=== PATIENT | female | born 1995 | race Caucasian/White ===

== ENCOUNTER 2017-03-11 14:22 | Emergency (ER) | payer BC, OTHER ==
[~2017-03-11] VITALS: Ht 160 cm; Wt 80.2 kg
[~2017-03-11 14:22] MED LIST: FRRS300 PO; MTR600X PO; PRENTAB26 PO
[2017-03-11 14:25] VITALS: TEMP 36.5; Ht 160 cm; Wt 80.2 kg
[2017-03-11] MEDS ORDERED: ETONMIS VAGRING (14:44)
--- NOTE | 2017-03-11 14:47 | EMERGENCY ROOM VISIT NOTE ---
History Report prepared by Clarissa: Janae Vieira Under the Supervision of: Dr. Nimesh Mendes D.O. First contact with patient: 14:27 Chief Complaint: MENTAL HEALTH EVALUATION Stated Complaint: DEPRESSION,ANXIETY History of Present Illness The patient is a 21 year old female who presents to the Emergency Room for a mental health evaluation after feeling worsening depression for the last few weeks. The patient states that her boyfriend was in senior living and was released recently but overdosed on drugs 2 days after he got out. She reports that he is back in senior living but his family is living with her after being evicted. She notes that she recently started taking a weight loss pill that significantly worsened her depression and she stopped taking that pill shortly after starting it. The patient reports that she has a history of depression and was on Zoloft previously but stopped taking it after she was feeling better. She states that she has been having thoughts of envisioning herself drowning and also envisions herself drowning her 9 month old daughter and is scared of herself. She notes that she feels better when others are around her. Today the patient reports that she had a mental breakdown at work after having thoughts of hurting her daughter. She notes that she is not seeing a therapist. She denies any fever, nausea, vomiting, recent illness, alcohol use, and drug use. The patient states that she just stopped her menstrual period and it was normal timing. Source of History: patient Onset: a few weeks Position: other (mental health) Timing: constant, worsening Associated Symptoms: No fevers, No nausea, No vomiting Review of Systems See HPI for pertinent positives & negatives. A total of 10 systems reviewed and were otherwise negative. Past Medical & Surgical Medical Problems: (1) Episode of dizziness (2) membrane rupture (3) No pertinent past medical history (4) Post-dates (5) Family History Patient reports no known family medical history. Social History Smoking Status: Never Smoker Alcohol Use: none Drug Use: none Marital Status: in relationship Occupation Status: employed Current/Historical Medications Scheduled Etonogestrel/Ethinyl Estradiol (Nuvaring), 1 EA VAGRING MONTHLY Allergies Coded Allergies: Penicillins (Verified Adverse Reaction, Mild, VOMITING/NAUSEA, 03/11/17) Physical Exam Vital Signs Date Time Temp Pulse Resp B/P Pulse Ox O2 Delivery O2 Flow Rate FiO2 03/11/17 18:34 68 18 124/64 98 Room Air 03/11/17 14:25 36.5 82 18 119/80 99 Room Air Physical Exam GENERAL: Patient is awake, alert, and somewhat anxious appearing but comfortable. EYES: Bilateral conjunctival injection noted. The pupils are round and reactive. EARS, NOSE, MOUTH AND THROAT: The nose is without any evidence of any deformity. Mucous membranes are moist tongue is midline NECK: The neck is nontender and supple. RESPIRATORY: Normal respiratory effort is noted there is no evidence of wheezing rhonchi or rales CARDIOVASCULAR: Regular rate and rhythm noted there no murmurs rubs or gallops normal S1 normal S2 GASTROINTESTINAL: The abdomen is soft. Bowel sounds are present in all quadrants. Abdomen is nontender MUSCULOSKELETAL/EXTREMITIES: There is no evidence of gross deformity full range of motion is noted in the hips and shoulders SKIN: There is no obvious evidence of any rash. There are no petechiae, pallor or cyanosis noted. NEUROLOGIC: Patient is awake alert and oriented x3 strength is symmetric patellar reflexes are 2+ bilaterally PSYCH: Affect was flat, patient makes poor eye contact, currently admitting to vague suicidal ideation. Medical Decision & Procedures Laboratory Results 03/11/17 14:48 Red Blood Count 4.95, Mean Corpuscular Volume 89.3, Mean Corpuscular Hemoglobin 30.5, Mean Corpuscular Hemoglobin Concent 34.2, Mean Platelet Volume 12.1, Neutrophils (%) (Auto) 65.4, Lymphocytes (%) (Auto) 26.1, Monocytes (%) (Auto) 5.9, Eosinophils (%) (Auto) 2.2, Basophils (%) (Auto) 0.3, Neutrophils # (Auto) 6.08, Lymphocytes # (Auto) 2.43, Monocytes # (Auto) 0.55, Eosinophils # (Auto) 0.20, Basophils # (Auto) 0.03 03/11/17 14:48 Test 03/11/17 14:40 03/11/17 14:48 Urine Color YELLOW Urine Appearance CLEAR (CLEAR) Urine pH 6.5 (4.5-7.5) Urine Specific [place] 1.005 (1.000-1.030) Urine Protein NEG (NEG) Urine Glucose (UA) NEG (NEG) Urine Ketones NEG (NEG) Urine Occult Blood NEG (NEG) Urine Nitrite NEG (NEG) Urine Bilirubin NEG (NEG) Urine Urobilinogen NEG (NEG) Urine Leukocyte Esterase NEG (NEG) Urine Test NEG (NEG) Urine Opiates Screen NEG (NEG) Urine Methadone, Qualitative NEG (NEG) Urine Barbiturates NEG (NEG) Urine Phencyclidine (PCP) Level NEG (NEG) Ur Amphetamine/Methamphetamine NEG (NEG) MDMA (Ecstasy) Screen NEG (NEG) Urine Benzodiazepines Screen NEG (NEG) Urine Cocaine Metabolite NEG (NEG) Urine Marijuana (THC) NEG (NEG) White Blood Count 9.30 K/uL (4.8-10.8) Red Blood Count 4.95 M/uL (4.2-5.4) Hemoglobin 15.1 g/dL (12.0-16.0) Hematocrit 44.2 % (37-47) Mean Corpuscular Volume 89.3 fL (80-100) Mean Corpuscular Hemoglobin 30.5 pg (25-34) Mean Corpuscular Hemoglobin Concent 34.2 g/dl (32-36) Platelet Count 200 K/uL (130-400) Mean Platelet Volume 12.1 fL (7.4-10.4) Neutrophils (%) (Auto) 65.4 % Lymphocytes (%) (Auto) 26.1 % Monocytes (%) (Auto) 5.9 % Eosinophils (%) (Auto) 2.2 % Basophils (%) (Auto) 0.3 % Neutrophils # (Auto) 6.08 K/uL (1.4-6.5) Lymphocytes # (Auto) 2.43 K/uL (1.2-3.4) Monocytes # (Auto) 0.55 K/uL (0.11-0.59) Eosinophils # (Auto) 0.20 K/uL (0-0.5) Basophils # (Auto) 0.03 K/uL (0-0.2) RDW Standard Deviation 41.5 fL (36.4-46.3) RDW Coefficient of Variation 12.8 % (11.5-14.5) Immature Granulocyte % (Auto) 0.1 % Immature Granulocyte # (Auto) 0.01 K/uL (0.00-0.02) Anion Gap 4.0 mmol/L (3-11) Est Creatinine Clear Calc Drug Dose 127.1 ml/min Estimated GFR () 142.2 Estimated GFR (Non- 122.7 BUN/Creatinine Ratio 11.5 (10-20) Calcium Level 8.9 mg/dl (8.5-10.1) Total Bilirubin 0.7 mg/dl (0.2-1) Direct Bilirubin 0.1 mg/dl (0-0.2) Aspartate Amino Transf (AST/SGOT) 19 U/L (15-37) Alanine Aminotransferase (ALT/SGPT) 29 U/L (12-78) Alkaline Phosphatase 86 U/L (45-117) Total Protein 7.5 gm/dl (6.4-8.2) Albumin 4.0 gm/dl (3.4-5.0) Thyroid Stimulating Hormone (TSH) 1.710 uIu/ml (0.300-4.500) Ethyl Alcohol mg/dL < 3.0 mg/dl (0-3) Laboratory results per my review. ED Course 1427: The patient was evaluated in room A6. A complete history and physical examination were performed. 1543: I reevaluated the patient and updated her. 190: Upon reevaluation, the patient is doing well. I discussed the results and treatment plan with the patient. She verbalized agreement of the treatment plan. The patient was discharged home. Medical Decision Differential diagnosis: Etiologies such as mood disorder, infection, hypoglycemia, electrolyte abnormalities, cardiac sources, intracerebral event, toxicologic, neurologic, as well as others were entertained. Medication Reconciliation: I attest that I have personally reviewed the patient' s current medications list. Blood pressure screening: Patient was found to have normal blood pressure on screening and does not require follow-up. The patient is a 21-year-old female who presented to the emergency department for an evaluation of depression. The patient is had problems with depression ever since she gave . She has a healthy 9-month-old baby at home. The patient stopped taking her medications because she was feeling much better but her symptoms have started to recur. She has multiple stressors in her life right now. She has loose ideation related to her depression. She has no specific plan at this time. She was evaluated by the mental health case loader operator in the emergency department. At this time she does not meet specific criteria for inpatient admission at this time she does not feel that she is unsafe at home and does not feel that her child is unsafe at home either. She was advised to have family members around her all times and try to limit her alone time with the baby. She was also encouraged to follow-up as soon as possible with her primary care physician to restart her medications. She was also encouraged to return to the emergency department immediately or call crisis if symptoms change worsen or the need arises. Impression Primary Impression: Depression Additional Impression: Acute anxiety Scribe Attestation The scribe's documentation has been prepared under my direction and personally reviewed by me in its entirety. I confirm that the note above accurately reflects all work, treatment, procedures, and medical decision making performed by me. Departure Information Dispostion Home / Self-Care Referrals Krzysztof Stokes M.D. (PCP) Forms HOME CARE DOCUMENTATION FORM, IMPORTANT VISIT INFORMATION Patient Instructions Depression Help Tips, Depression Know Signs Sx, [facility] Additional Instructions Continue all medications as prescribed. Rest and avoid any strenuous activity. Call crisis or return to the emergency department immediately if symptoms change worsen or the need arises. Problem Qualifiers Primary Impression: Depression Depression Type: unspecified Qualified Codes: F32.9 - Major depressive disorder, single episode, unspecified
[2017-03-11 15:02] LABS: BASO % 0.3 %; BASO ABS # 0.03 K/uL (0-0.2); COMPLETE YES; EOS % 2.2 %; HEMATOCRIT 44.2 % (37-47); IG% 0.1 %; LYMPH % 26.1 %; LYMPH ABS # 2.43 K/uL (1.2-3.4); MEAN CELL VOLUME 89.3 fL (80-100); MEAN CORPUSCULAR HEMOGLOBIN 30.5 pg (25-34); MEAN CORPUSCULAR HGB CONC 34.2 g/dl (32-36); MEAN PLATELET VOLUME 12.1 fL (7.4-10.4); MONO % 5.9 %; NEUT % 65.4 %; PLATELET COUNT 200 K/uL (130-400); RED BLOOD COUNT 4.95 M/uL (4.2-5.4)
[2017-03-11 15:14] LABS: URINE APPEARANCE CLEAR (CLEAR); URINE BILIRUBIN NEG (NEG); URINE COLOR YELLOW; URINE NITRITE NEG (NEG); URINE PH 6.5 (4.5-7.5); URINE SPECIFIC GRAVITY 1.005 (1.000-1.030); UROBILINOGEN NEG (NEG)
[2017-03-11 15:20] LABS: MANUAL MICROSCOPIC REQUIRED? NO; REVIEW REQ? NO
[2017-03-11 15:23] LABS: BUN/CREATININE RATIO 11.5 (10-20); CALCIUM 8.9 mg/dl (8.5-10.1); CREATININE 0.69 mg/dl (0.60-1.20); POTASSIUM 3.5 mmol/L (3.5-5.1)
[2017-03-11 15:33] LABS: THYROID STIMULATING HORMONE 1.71 uIu/ml (0.300-4.500)
[2017-03-11 15:38] LABS: BENZODIAZEPINE, URINE NEG (NEG); COCAINE,URINE NEG (NEG); PHENCYCLIDINE, URINE NEG (NEG)
[2017-03-11 18:34] VITALS: BP 124/64; PULSE 68; O2SAT 98
== END 2017-03-11 19:01 | disposition home or self-care (01) ==
LOC: C.EDB 14:24 → C.EDA 19:01
DX: F32.9 Major depressive disorder, single episode, unspecified (principal); F41.9 Anxiety disorder, unspecified

== ENCOUNTER → 2018-01-06 | Day surgery (SDC) | payer BC ==
[~2018-01-06] VITALS: Ht 160 cm; Wt 84.0 kg
[~2018-01-06] MED LIST changes: +ATROPINE SULFATE 0.1 MG/ML 5ML SYR IV PRN; +ETONMIS VAGRING; +EpHEDrine SULFATE INJ 50 MG/ML AMP IV PRN; +FENTANYL CITRATE INJ 50 MCG/1 ML 2 ML VIAL IV PRN; -FRRS300 PO; +LACTATED RINGER'S 1000ML 1,000 ML IV SCH; -MTR600X PO; -PRENTAB26 PO; +SERT25TA PO
[2018-01-06 08:21] VITALS: BP 129/56; PULSE 92; TEMP 37; O2SAT 100; Ht 160 cm; Wt 84.0 kg
--- NOTE | 2018-01-08 10:35 | EDITING REQUIRED CODING QUERY ---
REASON FOR CANCELLATION Please provide a diagnosis below for the reason of cancellation: Complete spontaneous miscarriage prior to her surgery REASON PROCEDURE CANCELLED: Thank you for your assistance, Carly Last - Licensed Embalmer
== END | disposition home or self-care (01) ==
LOC: C.ACU 07:54
PROVIDERS: ATTEND Obstetrics & Gynecology
DX: O02.1 Missed abortion (principal); Z53.8 Procedure and treatment not carried out for other reasons; Z88.0 Allergy status to penicillin; Z83.3 Family history of diabetes mellitus; Z82.49 Family history of ischemic heart disease and other diseases of the circulatory system

== ENCOUNTER → 2018-01-29 | Outpatient (CLI) | payer BC ==
[~2018-01-29] MED LIST changes: -ATROPINE SULFATE 0.1 MG/ML 5ML SYR IV PRN; -ETONMIS VAGRING; -EpHEDrine SULFATE INJ 50 MG/ML AMP IV PRN; -FENTANYL CITRATE INJ 50 MCG/1 ML 2 ML VIAL IV PRN; -LACTATED RINGER'S 1000ML 1,000 ML IV SCH; +MTR600X PO
[2018-01-29 12:11] LABS: BASO % 0.3 %; BASO ABS # 0.03 K/uL (0-0.2); EOS % 2.5 %; EOS ABS # 0.25 K/uL (0-0.5); HEMATOCRIT 44.3 % (37-47); HEMOGLOBIN 15.1 g/dL (12.0-16.0); IG# 0.01 K/uL (0.00-0.02); LYMPH % 30.2 %; LYMPH ABS # 3.02 K/uL (1.2-3.4); MEAN CELL VOLUME 89.3 fL (80-100); MEAN CORPUSCULAR HEMOGLOBIN 30.4 pg (25-34); MEAN CORPUSCULAR HGB CONC 34.1 g/dl (32-36); MEAN PLATELET VOLUME 12.5 fL (7.4-10.4); MONO % 6.1 %; MONO ABS # 0.61 K/uL (0.11-0.59); NEUT % 60.8 %; NEUT ABS # 6.09 K/uL (1.4-6.5); PLATELET COUNT 218 K/uL (130-400); RED CELL DISTRIBUTION WIDTH CV 12.7 % (11.5-14.5); RED CELL DISTRIBUTION WIDTH SD 40.8 fL (36.4-46.3); WHITE BLOOD COUNT 10.01 K/uL (4.8-10.8)
== END | disposition home or self-care (01) ==
LOC: C.LAB 11:07
PROVIDERS: ATTEND Obstetrics & Gynecology
DX: Z01.812 Encounter for preprocedural laboratory examination (principal)

== ENCOUNTER → 2018-01-31 | Day surgery (SDC) | payer BC ==
--- NOTE | 2018-01-28 13:07 | HISTORY & PHYSICAL EXAMINATION ---
DATE OF ADMISSION: 01/31/2018 REASON FOR ADMISSION: Retained products of conception. HISTORY OF PRESENT ILLNESS: The patient is a 22-year-old female para 1-0-0-1 who presents today for followup ultrasound. Two weeks ago, she had a spontaneous miscarriage approximately 10 weeks' gestation and has retained products. She was originally scheduled 2 weeks ago in the OR and decided to wait because she thought she passed everything. She is not currently bleeding or having any pain. The patient is O positive. PAST MEDICAL HISTORY: Positive for depression. PAST SURGICAL HISTORY: None. SOCIAL HISTORY: Denies smoking, alcohol or drug use. FAMILY HISTORY: Noncontributory. PAST OBSTETRICAL HISTORY: x1 in 2016. ALLERGIES: PENICILLIN. MEDICATIONS: vitamins. PHYSICAL EXAMINATION: HEENT: Within normal limits. LUNGS: Clear to auscultation. COR: Regular rate and rhythm. ABDOMEN: Soft. EXTREMITIES: Within normal limits. NEUROLOGICAL: Intact. ASSESSMENT: Post-, retained products of conception. PLAN: D&E in the OR.
[2018-01-29 13:59] VITALS: Ht 160 cm; Wt 84.1 kg
[~2018-01-31] VITALS: Ht 160 cm; Wt 84.1 kg
[~2018-01-31] MED LIST changes: +ATROPINE SULFATE 0.1 MG/ML 5ML SYR IV PRN; +DEXAMETHASONE SOD INJ 4 MG/ML VIAL ONE; +EpHEDrine SULFATE INJ 50 MG/ML AMP IV PRN; +FENTANYL CITRATE INJ 50 MCG/1 ML 2 ML VIAL IV PRN; +FENTANYL CITRATE INJ 50 MCG/1 ML 2 ML VIAL ONE; +IBUPROFEN 600 MG TAB PO PRN; +KETOROLAC TROMETHAMINE 30 MG/ML VIAL IV. PRN; +KETOROLAC TROMETHAMINE 30 MG/ML VIAL ONE; +LACTATED RINGER'S 1000ML 1,000 ML IV SCH; +LIDOCAINE HCL 2% 2 ML VIAL (20MG/ML) ONE; +MIDAZOLAM HCL 1 MG/ML 2ML VIAL ONE; +MoRPHine SULFATE 2 MG/ML CARP IV PRN; +ONDANSETRON INJ 2 MG/ML 2 ML VIAL IV PRN; +ONDANSETRON INJ 2 MG/ML 2 ML VIAL ONE; +OXYCODONE/ACETAMINOPHEN 5-325 TAB PO PRN; +OXYTOCIN INJ 10 UNITS/ML VIAL ONE; +PROPOFOL IV EMULSION 10 MG/ML 20 ML VIAL IV ONE; +SILVER NITR/POTASSIUM NITRATE APPLICATOR ONE; +SODIUM CHLORIDE 0.9% 1000ML 1,000 ML IV SCH
--- NOTE | 2018-01-31 08:42 | History & Physical Bridge Note ---
H&P Re-Evaluation Bridge Note: I have examined the patient, reviewed the History & Physical and in the interval since the performance of the History & Physical I have noted the following changes of clinical significance: No changes noted
--- NOTE | 2018-01-31 11:26 | [facility] Post Operative Brief Note ---
Immediate Operative Summary Operative Date Jan 31, 2018. Pre-Operative Diagnosis Missed Post-Operative Diagnosis Same Procedure(s) Performed Dilation and evacuation Surgeon Dr Martinez Substation Operator Helper Surgeon(s) none Estimated Blood Loss 25ml Findings Consistent with Post-Op Diagnosis Fluids (cc crystalloids) 1100 ml. Specimens A. Products of conception Drains None Anesthesia Type General Complication(s) none Disposition Accompanied Pt To Recover: no
--- NOTE | 2018-01-31 11:29 | Discharge Instructions ---
Discharge Instructions Date of Service Jan 31, 2018. Admission Reason for Admission: Retained Products Of Conception Discharge Discharge Diagnosis / Problem: missed Discharge Goals Goal(s): Routine recovery after surgery Activity Recommendations Activity Limitations: as noted below Lifting Limitations: no more than 10 pounds, gradually increase as tolerated Exercise/Sports Limitations: gradually increase as tolerated May Resume Sexual Activity: after follow-up appointment Shower/Bathe: no limitations Driving or Machine Use: resume 1 day after discharge . Instructions / Follow-Up Instructions / Follow-Up ACTIVITY RECOMMENDATIONS: * Avoid tampons, douching, hot tubs, pools, and intercourse until bleeding has stopped. * May shower as usual. * No strenuous activity for 24-48 hours. After 24-48 hours, you may do anything you feel like doing (driving and sports are okay). SPECIAL CARE INSTRUCTIONS: Special Diet: * Mild nausea may occur in the immediate post-operative period. * Take clear liquids such as tea, cola or bouillon until all nausea has subsided; you may then resume your normal diet. Special Care: * Light bleeding and vaginal spotting can last from a few days to 3-4 weeks. Call your doctor if bleeding becomes heavier than the heaviest part of your period. * Check your temperature twice a day for one week. If it goes above 100.4 degrees Fahrenheit (38.0 Celsius), notify your doctor. * Call your doctor's office for an appointment for 6 weeks after your surgery. FOLLOW-UP VISIT: Call your doctor's office for an appointment for 6 weeks after your surgery. Current Hospital Diet Patient's current hospital diet: Discharge Diet Recommended Diet: Regular Diet Fluid Restriction: None Procedures Procedures Performed: Dilation and evacuation Pending Studies Studies pending at discharge: no Medical Emergencies . Who to Call and When: Medical Emergencies: If at any time you feel your situation is an emergency, please call 911 immediately. . Non-Emergent Contact Non-Emergency issues call your: Primary Care Provider . . "Provider Documentation" section prepared by Jay Martinez. .
[2018-01-31 12:20] VITALS: BP 116/58; PULSE 88; TEMP 36.5; O2SAT 97
[2018-01-31 12:50] VITALS: BP 133/83; PULSE 96; TEMP 36.6; O2SAT 96
--- NOTE | 2018-01-31 13:28 | OPERATIVE REPORT ---
DATE OF OPERATION: 01/31/2018 PREOPERATIVE DIAGNOSIS: Missed . POSTOPERATIVE DIAGNOSIS: Same. PROCEDURE: D and E. SURGEON: Jay Martinez MD HIGH SCHOOL LEARNING SUPPORT TEACHER: None. COMPLICATIONS: None. FINDINGS: Products of conception. SPECIMEN: Products of conception. TOTAL FLUIDS: 1100 mL. TOTAL URINE OUTPUT: 100 mL. BLOOD LOSS: 25 mL. CLINICAL HISTORY: The patient is a 22-year-old female, para 1-0-0-1, admitted for a missed . The patient is O positive, approximately 10 weeks' gestation. She had a timeout before the procedure was started. No antibiotics were given. DESCRIPTION OF PROCEDURE: After satisfactory general anesthesia, the patient was prepped and draped in usual sterile fashion. Catheter used to enter into the bladder of 100 mL of clear urine. Exam under anesthesia revealed the uterus to be approximately 10 week size. No adnexal mass. A weighted speculum was placed in the posterior vault of the vagina. Single tooth tenaculum was placed on the anterior lip of the cervix. Cervix was sounded to 10 cm. Uterus was then progressively dilated. A #10 curved curet was then introduced suctioning out products of conception. Sharp endometrial curet was then used curetting out minimal amounts of tissue. Pitocin was started in the IV. No active bleeding was noted. EBL 25 mL. Final sponge and instrument count were found to be correct. All remaining instruments were removed. Patient was then placed supine on a stretcher and taken to recovery room in stable condition. I attest to the content of the Intraoperative Record and any orders documented therein. Any exception s are noted below.
--- NOTE | 2018-01-31 14:55 | Anesthesiology Progress Note ---
Anesthesia Post Op Note Date & Time Jan 31, 2018 at 14:55 Vital Signs Pain Intensity: 2 Vital Signs Past 12 Hours Date Time Temp Pulse Resp B/P (MAP) Pulse Ox O2 Delivery O2 Flow Rate FiO2 01/31/18 12:50 36.6 96 16 133/83 96 Room Air 01/31/18 12:20 36.5 88 16 116/58 97 Room Air 01/31/18 12:15 36.6 91 21 122/76 95 Room Air 01/31/18 12:05 87 17 129/76 96 Room Air 01/31/18 11:55 90 29 132/72 99 Oxymask 10 01/31/18 11:45 102 24 131/69 98 Oxymask 10 01/31/18 11:37 36.5 99 16 130/73 99 Oxymask 10 Notes Mental Status: alert / awake / arousable, participated in evaluation Pt Amnestic to Procedure: Yes Nausea / Vomiting: adequately controlled Pain: adequately controlled Airway Patency, RR, SpO2: stable & adequate BP & HR: stable & adequate Hydration State: stable & adequate Anesthetic Complications: no major complications apparent
== END | disposition home or self-care (01) ==
LOC: C.ACU 08:01
PROVIDERS: ATTEND Obstetrics & Gynecology
DX: O02.1 Missed abortion (principal); Z88.0 Allergy status to penicillin; Z83.3 Family history of diabetes mellitus; Z82.49 Family history of ischemic heart disease and other diseases of the circulatory system

== ENCOUNTER 2019-12-11 09:05 | Inpatient (IN) ==
--- NOTE | 2019-12-11 09:37 | Obstetrical Progress Note ---
Date of Service December 11, 2019 Physical Exam Physical Exam: Admit Note 24 F P1001 at 40 weeks with onset of labor this AM. Had some leakage of fluid this AM. Amnisure was negative. GBS is negative. FHT Cat 1. Cervix 4/80/- 1/vertex/anterior. EFW 7.5 lbs. Patient in early labor and will ambulate. Plans for epidural. Results & Data ([facility]) Vital Signs (Past 12 Hours) Vital Signs Temp Pulse Resp BP 12/11/19 09:15 36.9 C 82 22 138/84
[2019-12-11] MEDS: LACTATED RINGER'S 1,000 ML IV PRN ×2 (09:58→14:07)
[2019-12-11 10:00] LABS: Hematocrit (blood only) 39.6 % (37-47); Hemoglobin 12.9 g/dL (12.0-16.0); Mean Corpuscular Hemoglobin 27.9 pg (25-34); Mean Corpuscular Volume 85.5 fL (80-100); Platelet Count 176 K/uL (130-400); RDW Standard Deviation 42.5 fL (36.4-46.3); Red Blood Count 4.63 M/uL (4.2-5.4); White Blood Count 15.75 K/uL (4.8-10.8)
[2019-12-11 10:02] LABS: Mean Corpuscular Hgb Conc 32.6 g/dL (32-36)
[2019-12-11] MEDS ORDERED: BUPIVACAINE 0.25% 30 ML VIAL ONE (10:06)
[2019-12-11] MEDS ORDERED: ePHEDrine sulfate 50 MG/ML AMP ONE (10:06)
[2019-12-11] MEDS ORDERED: fentaNYL citrate 100 MCG/2 ML VIAL ONE (10:06)
[2019-12-11] MEDS ORDERED: fentaNYL 2MCG/ML ROPIV 1.25MG/ML 100 ML BAG EPI ONE (10:07)
[2019-12-11] MEDS ORDERED: NALOXONE HCL 0.4 MG/1 ML VIAL/CARP IV PRN (10:47)
[2019-12-11] MEDS ORDERED: ePHEDrine sulfate 50 MG/ML AMP IV PRN (10:47)
[2019-12-11] MEDS ORDERED: DiphenhydrAMINE HCL 50 MG/ML VIAL IV PRN (10:47)
[2019-12-11] MEDS ORDERED: ONDANSETRON INJ 2 MG/ML 2 ML VIAL IV PRN (10:47)
[2019-12-11] MEDS ORDERED: fentaNYL 2MCG/ML ROPIV 1.25MG/ML 100 ML BAG EPI PRN (10:47)
[2019-12-11] MEDS ORDERED: NALOXONE HCL 1 MG in SODIUM CHLORIDE 0.9% 1000ML 1,000 ML IV PRN (10:47)
[2019-12-11] MEDS ORDERED: PROMETHAZINE HCL 6.25 MG in SODIUM CHLORIDE 0.9% 50 ML IV PRN (10:47)
[2019-12-11] MEDS ORDERED: NALBUPHINE HCL INJ 10 MG/ML AMP IV PRN (10:47)
--- NOTE | 2019-12-11 10:47 | Anesthesiology Consultation ---
Date of Service December 11, 2019 Assessment & Plan (1) Encounter for pre-operative examination: Chart Review Chart Review: Patient NOT seen in Pre Admission Testing and Acceptable Risk for Labor Epidural Consults Requested none ASA ASA2 Proposed Anesthesia Anesthesia Type: Labor Epidural Risk / Benefits Reviewed With: PT / POA / Parent / Guardian, Accepts Plan and Informed Consent Obtained History Allergies Allergy/AdvReac Type Severity Reaction Status Date / Time Penicillins AdvReac Mild VOMITING/NA Verified 11/22/19 11:55 USEA Medications Home Medications Medication Instructions Recorded Confirmed Last Taken vit no.[id number] 1 tab PO DAILY 07/01/19 11/22/19 10/19/19 [ Vitamin] Active Medications Generic Name Dose Route Start Last Admin Trade Name Freq PRN Reason Stop Dose Admin Lactated Ringer's 1,000 mls @ 125 mls/hr 12/11/19 09:34 12/11/19 10:45 Lr IV 12/13/19 09:33 999 mls/hr .Q8H PRN Infusion L&D Protocol Protocol Past Medical History Medical History Depression (Chronic) Obesity Exercise / Class Metabolic Activity II 4-5 Yardwork/Stairs/Walk up hill Past Family History Family History Other No pertinent family history in first degree relatives Past Surgical History Surgical History Hx of dilation and curettage Status post dilatation and curettage (Resolved) Past Anesthesia History No Hx of Anesthesia Complications and No Family Hx of Anesthesia Complications History of PONV No Hx of PONV and No Hx of Motion Sickness Social History Smoking Status: Never smoker Hx Alcohol Use: No Hx Substance Use: No substance use type: does not use Physical Exam Vital Signs Last Vital Signs Temp 36.9 C 12/11/19 09:15 Pulse 141 H 12/11/19 10:45 Resp 22 12/11/19 09:15 BP 150/81 H 12/11/19 10:45 Pulse Ox 100 12/11/19 10:44 ENMT Mouth: no dentition abnormality Thyromental Distance: > or= 3.5 Finger Breadths Mallampati Class: II Neck normal visual inspection Respiratory normal respiratory effort Auscultation: lungs clear to auscultation bilaterally Cardiovascular Rate/Rhythm: regular rate and regular rhythm Psychiatric Orientation: alert Testing Laboratory Results 12/11/19 09:48
--- NOTE | 2019-12-11 12:59 | Obstetrical Progress Note ---
Date of Service December 11, 2019 Physical Exam Genitourinary: Manual OB Exam: + cervical dilation 7 cm, + cervical effacement 100%, + station -2 and + amniotic fluid clear OB Exam Monitor Tracing: + external FHT monitor used, + external uterine monitor used, + category I and + normal FHT variability AROM with amni-hook clear fluid Results & Data ([facility]) Vital Signs (Past 12 Hours) Vital Signs Temp Pulse Resp BP Pulse Ox 12/11/19 12:57 131 H 115/70 12/11/19 12:54 157 H 98 12/11/19 12:49 101 H 97 12/11/19 12:45 110 H 125/82 12/11/19 12:44 105 H 99 12/11/19 12:39 104 H 100 12/11/19 12:35 108 H 116/83 12/11/19 12:34 102 H 100 12/11/19 12:29 125 H 100 12/11/19 12:25 116 H 142/75 H 12/11/19 12:24 108 H 99 12/11/19 12:19 97 H 100 12/11/19 12:16 113 H 133/76 12/11/19 12:14 116 H 100 12/11/19 12:09 116 H 99 12/11/19 12:05 146 H 141/72 H 12/11/19 12:04 140 H 100 12/11/19 11:59 99 H 95 12/11/19 11:58 117 H 79 L 12/11/19 11:55 100 H 91/55 L 12/11/19 11:54 101 H 100 12/11/19 11:49 100 H 100 12/11/19 11:47 109 H 104/61 12/11/19 11:44 107 H 100 12/11/19 11:39 133 H 95 12/11/19 11:38 111 H 88 L 12/11/19 11:34 115 H 100 12/11/19 11:29 99 H 100 12/11/19 11:25 136 H 121/56 L 12/11/19 11:24 117 H 100 12/11/19 11:19 107 H 94 12/11/19 11:14 81 100 12/11/19 11:10 36.9 C 12/11/19 11:09 116 H 100 12/11/19 11:07 124 H 87 L 02/28/20 11:04 109 H 100 12/11/19 10:59 117 H 100 12/11/19 10:56 122 H 87 L 12/11/19 10:55 123 H 122/63 12/11/19 10:54 132 H 100 12/11/19 10:49 132 H 100 12/11/19 10:45 141 H 150/81 H 12/11/19 10:44 143 H 100 12/11/19 10:42 116 H 120/62 12/11/19 10:40 126 H 122/63 12/11/19 10:39 109 H 99 12/11/19 10:38 122/74 12/11/19 10:37 114 H 127/85 12/11/19 10:34 117 H 121/70 99 12/11/19 10:32 97 H 133/81 12/11/19 10:31 93 H 132/70 12/11/19 10:29 87 99 12/11/19 10:28 101 H 119/82 12/11/19 10:24 96 H 100 12/11/19 10:21 103 H 89 L 12/11/19 10:19 100 H 97 12/11/19 09:15 36.9 C 82 22 138/84
[2019-12-11] MEDS: OXYTOCIN 30 UNITS/500 ML BAG IV PRN ×2 (15:00→16:39)
[2019-12-11] MEDS ORDERED: bisacodyL 10 MG SUPP PR PRN (15:05)
[2019-12-11] MEDS ORDERED: ACETAMINOPHEN 325 MG TAB PO PRN (15:05)
[2019-12-11] MEDS ORDERED: DIPHTHERIA/TETANUS/PERTUSSIS 0.5 ML SYR/VIAL IM ONE (15:05)
[2019-12-11] MEDS ORDERED: HYDROCORTISONE ACETATE 25 MG SUPP PR PRN (15:05)
[2019-12-11] MEDS ORDERED: OXYTOCIN 30 UNITS/500 ML BAG IV PRN (15:05)
[2019-12-11] MEDS ORDERED: BENZOCAINE 20% AER SPR 82.5 GM CAN EXT PRN (15:05)
[2019-12-11] MEDS ORDERED: SUPERCREAM 0.870% 15 GM JAR EXT PRN (15:05)
--- NOTE | 2019-12-11 17:16 | Anesthesia Procedure Note ---
Date of Service December 11, 2019 Anesthesia Post Epidural Note Vital Signs Vital Signs: Temp Pulse Resp BP Pulse Ox 36.7 C 87 20 114/72 97 12/11/19 12:59 12/11/19 17:10 12/11/19 12:59 12/11/19 17:10 12/11/19 14:54 Notes Mental Status: alert / awake / arousable Nausea / Vomiting: adequately controlled Pain: adequately controlled Airway Patency, RR, SpO2: stable & adequate BP & HR: stable & adequate Hydration State: stable & adequate Neuraxial Anesthesia: was administered and sensory block is resolving Anesthetic Complications: no major complications apparent and Pt Satisfied with anesthetic care Epidural: Removed without complications and With tip intact
[2019-12-11] MEDS: DOCUSATE SODIUM 100 MG CAP PO SCH (20:34)
[2019-12-11] MEDS: IBUPROFEN 600 MG TAB PO PRN (22:25)
[2019-12-12] MEDS: IBUPROFEN 600 MG TAB PO PRN ×3 (03:46→20:08)
[2019-12-12 06:26] LABS: Hematocrit (blood only) 34.3 % (37-47); Hemoglobin 11.1 g/dL (12.0-16.0); Mean Corpuscular Hemoglobin 27.7 pg (25-34); Mean Corpuscular Hgb Conc 32.4 g/dL (32-36); Mean Corpuscular Volume 85.5 fL (80-100); Mean Platelet Volume 12.1 fL (7.4-10.4); Platelet Count 161 K/uL (130-400); Red Blood Count 4.01 M/uL (4.2-5.4); White Blood Count 14.76 K/uL (4.8-10.8)
[2019-12-12] MEDS: DOCUSATE SODIUM 100 MG CAP PO SCH ×2 (08:14→20:08)
[2019-12-12] MEDS: PRENATAL VITAMIN 1 TAB PO SCH (08:14)
[2019-12-12] MEDS ORDERED: PRENATAL VITAMIN 1 TAB PO SCH (09:00)
--- NOTE | 2019-12-12 09:19 | Delivery Summary ---
Vaginal Delivery Summary Date of Service December 11, 2019 Vaginal Delivery Summary Delivery note live male CHARLIE over intact perineum with mild shoulder dystocia noted. Netta maneuver and posterior arm reduced before delivery of shoulder. Apgars 7/9 weight 10 lb. 8.5 oz. Cord blood obtained and placenta delivered spontaneously and intact. No tears. EBL 200 ml. Final sponge and instrument count are correct. Mom and baby stable.
--- NOTE | 2019-12-12 09:21 | Obstetrical Progress Note ---
Date of Service December 12, 2019 Assessment & Plan Admission and Anticipated Discharge Date Admission Date: December 11, 2019 Subjective PPD#1 doing well passing gas tolerating diet ambulating well Physical Exam Constitutional: WD/WN, vitals as above comfortable abdomen soft and non- tender fundus firm no edema neg Santosh's tent d/c in AM Results & Data ([facility]) Vital Signs (Past 12 Hours) Vital Signs Temp Pulse Resp BP Pulse Ox 12/12/19 07:50 36.7 C 76 16 101/65 98 12/12/19 00:20 36.9 C 86 18 108/69 Laboratory Results Laboratory Results - last 48 hr 12/11/19 12/12/19 09:48 06:13 WBC 15.75 H 14.76 H RBC 4.63 4.01 L Hgb 12.9 11.1 L Hct 39.6 34.3 L MCV 85.5 85.5 MCH 27.9 27.7 MCHC 32.6 32.4 RDW Std Deviation 42.5 43.0 RDW Coeff of Sofia 14.0 14.0 Plt Count 176 161 MPV 12.0 H 12.1 H
[2019-12-12] MEDS ORDERED: bisacodyL 5 MG TABEC PO SCH (20:00)
[2019-12-13 06:31] LABS: Hematocrit (blood only) 36.2 % (37-47); Hemoglobin 11.8 g/dL (12.0-16.0)
[2019-12-13] MEDS ORDERED: MEASLES, MUMPS & RUBELLA VIRUS VIAL SQ ONE (07:37)
[2019-12-13] MEDS: PRENATAL VITAMIN 1 TAB PO SCH (07:47)
[2019-12-13] MEDS: IBUPROFEN 600 MG TAB PO PRN (07:47)
--- NOTE | 2019-12-13 08:36 | Obstetrical Progress Note ---
Date of Service December 13, 2019 Assessment & Plan Admission and Anticipated Discharge Date Admission Date: December 11, 2019 Subjective doing well passing gas tolerating diet ambulating well Physical Exam Constitutional: WD/WN, vitals as above comfortable Results & Data ([facility]) Vital Signs (Past 12 Hours) Vital Signs Temp Pulse Resp BP 12/13/19 00:15 36.6 C 63 18 126/83 Laboratory Results Laboratory Results - last 48 hr 12/11/19 12/12/19 12/13/19 09:48 06:13 06:19 WBC 15.75 H 14.76 H RBC 4.63 4.01 L Hgb 12.9 11.1 L 11.8 L Hct 39.6 34.3 L 36.2 L MCV 85.5 85.5 MCH 27.9 27.7 MCHC 32.6 32.4 RDW Std Deviation 42.5 43.0 RDW Coeff of Sofia 14.0 14.0 Plt Count 176 161 MPV 12.0 H 12.1 H
[2019-12-13] MEDS: DOCUSATE SODIUM 100 MG CAP PO SCH (09:18)
== END 2019-12-13 11:00 | disposition home or self-care (01) | DRG 807 ==
LOC: 4S1 09:05 → OPB 09:05 → 4S1 09:34 → 4S2 18:15

== ENCOUNTER 2024-07-25 08:48 | Inpatient (IN) ==
--- NOTE | 2024-07-25 08:57 | Emergency Department Note ---
History of Present Illness General Chief complaint: Infection Stated complaint: ABCESS UNDER ARM Time Seen by Provider: 07/25/24 08:56 History of Present Illness Maximum Pain Intensity: 10 This is a 28-year-old female who presents to the emergency department via private vehicle with complaints of "left armpit swelling, pain". The patient notes that there is an abscess under the left arm area. No history of similar. This began 3 days ago. Patient denies any trauma, injury, fevers, chills, nausea or vomiting. She notes penicillin allergy causing nausea when she was younger but notes she has had penicillin since then without issue. Patient otherwise denies any pertinent past medical history or surgeries. Home Medications Medication Instructions Recorded Confirmed Type buprenorphine 8 mg-naloxone 2 mg 2.5 film sublingual DAILY 07/25/24 07/25/24 History sublingual film Allergies Allergy/AdvReac Type Severity Reaction Status Date / Time Penicillins AdvReac Intermediate NAUSEA/VOMI Verified 11/07/22 15:40 TIN Past Med/Surg History Problem List (Updated 07/25/24 @ 16:54 by Erlin Brown PA-C) Abscess of left axilla (Acute) Cellulitis of left axilla (Acute) Depression (Chronic) Medical History Obesity Surgical History Hx of dilation and curettage Family History Other Deep vein thrombosis Social History Smoking Status: Never smoker Second Hand Exposure: No; Do You Dip or Chew Tobacco: No; Hx Alcohol Use: Yes Alcohol type: hard liquor Hx Substance Use: No Preferred Language: Niuean Communication Ability: Effective Visual Impairment: No Limitations Superior Court Clerk Required: No Beliefs That Will Affect Care: None marital status: Single Current Living Situation: Alone Current Living Situation Comment: Pt lives with and is caregiver of her two young children. current occupational status: employed Other Information That Helps Us Care for You: No Feels Safe at Home: Yes Safety Concerns: Feels Safe At This Time Assistive Devices: None Review of Systems A total of 10 systems reviewed and were otherwise negative Physical Exam Vital Signs Vital Signs - 24 hr 07/25/24 08:53 07/25/24 11:16 07/25/24 13:23 Temperature 36.8 C Temperature Source Temporal Artery Scan Pulse Rate 122 H Pulse Rate [Finger] 88 90 Respiratory Rate 19 16 18 Respiratory Effort / Characteristics Non-Labored Spontaneous Respiratory Depth Normal Normal Blood Pressure 116/78 Blood Pressure [Right Arm] 129/97 125/79 Blood Pressure Mean 90 Blood Pressure Mean [Right Arm] 107 94 Blood Pressure Position Sitting Blood Pressure Position [Right Arm] Semi-fowlers Semi-fowlers Pulse Oximetry 100 100 99 Oxygen Delivery Method Room Air Room Air Room Air Sepsis Recent Fever Within 48 Hours No Sepsis New/Unexplained Change in Mental Status No Sepsis Action Taken by Nursing No Action Required VITAL SIGNS - Vital signs and nursing notes were reviewed. Stable and afebrile. Tachycardic. GENERAL - 28-year-old female appearing her stated age who is in no acute distress. Communicates well with provider and answers questions appropriately. SKIN -left axillary area with an approximately 3 x 2 raised erythematous region with fluctuance. Surrounding erythema noted. There is some yellowish ecchymosis present across the chest which the patient notes was from "horsing around" and is unrelated. HEAD - NC/AT. EYES - PERRL with EOMI bilaterally. Sclera anicteric. EARS - No deformities of external structures noted on gross examination bilaterally. Tympanic membranes pearly villa without retraction or bulging. No fluid or purulent material visualized behind the TM. Handle of malleus, umbo, cone of light, pars tensa/flaccid all easily visualized. NOSE - Midline and without cyanosis. Septum midline without deviation or septal hematoma noted. MOUTH/OROPHARYNX - Without perioral cyanosis. Buccal mucosa pink and moist and without leukoplakia. Tongue midline with equal elevation of palate bilaterally. No tonsillar hypertrophy, erythema, or exudates noted. Good dentition noted. NECK - Neck with FROM. No nuchal rigidity. LUNGS - CTA CARDIAC - RRR EXTREMITIES - No clubbing or peripheral cyanosis. Skin as above. Left axillary region exquisitely tender with induration tracking towards the left anterior lateral chest wall. +5/5 strength noted in UE/LE bilaterally. Left upper extremity appropriately warm and well-perfused. NEUROLOGIC - Cranial nerves grossly intact. Sensory intact to light touch throughout. PSYCH -alert, oriented and pleasant on exam. pt is very pleasant and interacts well with examiner. Course Administered Medications Lactobacillus Acidophilus (Advanced Probiotic 625 Mg Capsule) 1,250 mg PO DAILY RUT Stop: 08/24/24 15:59 Last Admin: 07/25/24 16:38 Dose: 1,250 mg Documented By: ED Discontinued Medications Ampicillin Sodium/Sulbactam Sodium (Unasyn) 3,000 mg in 100 mls @ 200 mls/hr IV NOW STA Stop: 07/25/24 12:52 Last Infusion: 07/25/24 15:18 Dose: Infused Documented By: Admin: 07/25/24 12:56 Dose: 200 mls/hr Documented By: [facility] Vancomycin HCl 1,250 mg/ (Sodium Chloride) 525 mls @ 200 mls/hr IV NOW ONE Stop: 07/25/24 15:00 Last Infusion: 07/25/24 16:33 Dose: Infused Documented By: Admin: 07/25/24 13:25 Dose: 200 mls/hr Documented By: MMF Ketorolac Tromethamine (Ketorolac Tromethamine 15 Mg/Ml Vial) 10 mg IV NOW ONE Stop: 07/25/24 12:18 Last Admin: 07/25/24 12:27 Dose: 10 mg Documented By: MMF Lidocaine (Lidocaine/Epineph/Tetracaine 1 Ea Syr) 1 each EXT NOW STA Stop: 07/25/24 10:34 Last Admin: 07/25/24 11:18 Dose: 1 each Documented By: MMF Potassium Chloride (Potassium Chloride Crtab 20 Meq Tabcr) 40 meq PO NOW STA Stop: 07/25/24 15:05 Last Admin: 07/25/24 16:38 Dose: 40 meq Documented By: [facility] Medical Decision Making Laboratory Data 07/25/24 09:12 07/25/24 09:12 Lab Results 07/25/24 07/25/24 Range/Units 09:12 10:53 WBC 14.32 H (4.8-10.8) K/ul RBC 5.34 (4.20-5.40) M/uL Hgb 16.2 H (12.0-16.0) g/dl Hct 47.8 H (37.0-47.0) % MCV 89.5 (80.0-100.0) fL MCH 30.3 (25.0-34.0) pg MCHC 33.9 (32.0-36.0) g/dL RDW Std Deviation 39.7 (36.4-46.3) fL RDW Coeff of Sofia 12.3 (11.5-14.5) % Plt Count 310 (130-400) K/uL MPV 10.7 (9.4-12.4) fL Immature Gran % (Auto) 0.3 % Neut % (Auto) 73.5 % Lymph % (Auto) 17.9 % Butler % (Auto) 6.8 % Eos % (Auto) 1.1 % Baso % (Auto) 0.4 % Neut # (Auto) 10.51 H (1.40-6.50) K/uL Lymph # (Auto) 2.57 (1.20-3.40) K/uL Butler # (Auto) 0.97 H (0.11-0.59) K/uL Eos # (Auto) 0.16 (0.00-0.50) K/uL Baso # (Auto) 0.06 (0.00-0.20) K/uL Immature Gran # (Auto) 0.05 (0.01-0.20) K/uL Sodium 139 (136-145) mmol/L Potassium 3.4 L (3.5-5.1) mmol/L Chloride 103 (98-107) mmol/L Carbon Dioxide 30 (21-32) mmol/L Anion Gap 6 (3-11) BUN 11 (6-23) mg/dl Creatinine 0.70 (0.6-1.2) mg/dl Est Cr Clr Drug Dosing 97.2 ml/min eGFR 119.24 BUN/Creatinine Ratio 15.7 (10-20) Glucose 65 L (70-99(Fasting)) mg/dl Calcium 9.5 (8.6-10.3) mg/dl Total Bilirubin 1.5 H (0.2-1.0) mg/dl AST 23 (13-39) U/L ALT 18 (7-52) U/L Alkaline Phosphatase 75 (34-104) U/L Total Protein 7.6 (6.0-8.3) gm/dl Albumin 4.5 (3.4-5.0) gm/dl Globulin 3.1 (2.5-4.0) gm/dl Albumin/Globulin Ratio 1.5 (0.9-2) Procalcitonin < 0.02 (0-0.5) ng/ml HCG, Qual Negative (Negative) Imaging Data Radiologist's Impression: Vascular Ultrasound 07/25/24 09:04 US extremity non-vascular ltd HISTORY: 28 years-old Female L axillary abscess acute pain and swelling of left axillary tissues COMPARISON: Chest CT 11/22/2019 TECHNIQUE: Multiple real-time sonographic images of the left axillary tissues were obtained assessing grayscale appearance and color flow FINDINGS: Cutaneous thickening with subcutaneous edema and increased echogenicity. There is a superficial subcutaneous ovoid wider than tall hypoechoic complex 2.2 x 1.2 x 2.1 cm collection with peripheral hyperemia. IMPRESSION: Findings suggestive of cellulitis with probable small abscess versus phlegmon measuring 2.2 cm. ACT 112: Negative or not required by law. The above report was generated using voice recognition software. It may contain grammatical, syntax or spelling errors. Electronically signed by: Nabil Mayfield M.D. 07/25/2024 10:13 AM [facility] Narrative Patient was seen and evaluated as above in room C07. Review was performed of triage nursing notes and vital signs. I did review pertinent previous visits and patient history. After obtaining a thorough history and physical examination the above work up was performed. Patient presents to us today for evaluation of left axillary abscess. In addition to the abscess seen on examination across the anterior chest there is some yellowish ecchymosis indicating bruise from likely several days ago. Patient notes this is from "horsing around" and is unrelated. There are no other signs of trauma to the area. IV access was established. Labs were drawn. Patient was offered analgesia and respectfully declined. We will proceed with ultrasound of the left axillary region to further assess. I reviewed the imaging as well as the report is as above. Findings suggest cellulitis with probable small abscess versus phlegmon measuring 2.2 cm. This does correlate with the patient's examination. I did discuss the presentation with the on-call general surgeon, Dr. Sim. We will proceed here with bedside I&D and inpatient management. Verbal consent was obtained to perform the procedure.After saline and Betadine cleansing and let gel anesthesia, the abscess was incised with a number 11 scalpel blade. Great care was taken so as to void any neighboring structures such as lymph nodes, vasculature, etc. I will note that the abscess already started to drain a small amount prior to the procedure and I was able to utilize that same area where it had already started to drain to further open and purulence was expressed. A large amount of purulent material was released with more expressed by pressure.A swab was obtained for culture.The abscess cavity was further probed with a needle driver license reviewing officer gently. Patient tolerated this well but did have some discomfort. We will hold off on further I&D at this time pending clinical course here in the hospital with IV antibiotics which I believe are indicated noting the surrounding cellulitic change. Patient aware that she may require further I&D by surgical service in the operative setting depending on clinical course. No complications with the procedure. A bulky dressing was applied. Noting the overall small nature of the drain region, not amenable to packing at this time. IV Unasyn ordered as well as IV vancomycin for broad-spectrum coverage. Furthermore, I will note that the patient has tolerated penicillins previously at this institution without issue. Case discussed with the hospitalist service. Please refer to further documentation regarding her stay. GCS: 15 In the evaluation and treatment of this patient the following differential diagnoses were entertained: Abscess, lymphadenopathy, necrotizing skin process, among others Impression & Plan Cellulitis of left axilla, Abscess of left axilla Discharge Plan Visit Data Chief Complaint: Infection Stated Complaint: ABCESS UNDER ARM ED Provider: Nimesh Mendes ED Midlevel Provider: Erlin Brown Discharge Problem: Cellulitis of left axilla, Abscess of left axilla Patient Disposition: Admitted As Inpatient Condition: Good Discharge Instructions Interventions: ED Discharge Assessment Last Done: 07/25/24 15:00
[2024-07-25 09:33] LABS: Basophils # (auto) 0.06 K/uL (0.00-0.20); Basophils % (auto) 0.4 %; Eosinophils # (auto) 0.16 K/uL (0.00-0.50); Eosinophils % (auto) 1.1 %; Hematocrit (blood only) 47.8 % (37.0-47.0); Hemoglobin 16.2 g/dl (12.0-16.0); Immature Granulocytes # (auto) 0.05 K/uL (0.01-0.20); Immature Granulocytes % (auto) 0.3 %; Lymphocytes # (auto) 2.57 K/uL (1.20-3.40); Lymphocytes % (auto) 17.9 %; Mean Corpuscular Hemoglobin 30.3 pg (25.0-34.0); Mean Corpuscular Hgb Conc 33.9 g/dL (32.0-36.0); Mean Corpuscular Volume 89.5 fL (80.0-100.0); Mean Platelet Volume 10.7 fL (9.4-12.4); Monocytes # (auto) 0.97 K/uL (0.11-0.59); Monocytes % (auto) 6.8 %; Neutrophils # (auto) 10.51 K/uL (1.40-6.50); Neutrophils % (auto) 73.5 %; Platelet Count 310 K/uL (130-400); RDW Coefficient of Variation 12.3 % (11.5-14.5); RDW Standard Deviation 39.7 fL (36.4-46.3); Red Blood Count 5.34 M/uL (4.20-5.40); White Blood Count 14.32 K/ul (4.8-10.8)
[2024-07-25 09:37] LABS: Pregnancy Test, Serum Negative (Negative)
[2024-07-25 09:45] LABS: Albumin Globulin Ratio 1.5 (0.9-2); Albumin Level 4.5 gm/dl (3.4-5.0); BUN Creatinine Ratio 15.7 (10-20); Bilirubin,Total 1.5 mg/dl (0.2-1.0); Calcium 9.5 mg/dl (8.6-10.3); Creatinine Clr Calc Pharmacy 97.2 ml/min; Globulin 3.1 gm/dl (2.5-4.0); Potassium 3.4 mmol/L (3.5-5.1); Total Protein 7.6 gm/dl (6.0-8.3)
--- OUTSIDE RECORDS SUMMARY | 2024-07-25 10:06 | External Medical Summary | Summary of Care ---
Author Name Unknown Organization [facility] Address [address] [place] [address] Phone [phone] Care Team Providers Care Crime Scene Evidence Technician Name Role Phone Gissel Ambrose DO Primary Care Provider [phone] Reason for Visit * Reason Onset Date Comments Medication Refill 06/09/2024 reroute Encounter Details Date Type Department Care Team (Late st Contact Info) Description 06/09/2024 Refill [place] [address] [place] [address] Gissel Ambrose DO [address] [place] [address] Paronychia of finger, right Allergies Active Allergy Reactions Criticality Noted Date Comments Penicillins Nausea/vomiting 11/06/2013 documented as of this encounter (statuses as of 06/09/2024) Medications Medication Sig Dispensed Refills Start Date End Date Status Buprenorphine HCl-Naloxone HCl 8-2 MG Sublingual Film (Suboxone) TAKE 2.5 FILMS UNDER THE TONGUE DAILY 06/02/2024 Active hydrOXYzine HCl 10 MG Oral Tablet (Atarax) TAKE 1 TABLET BY MOUTH UP TO 3 TIMES DAILY NEEDED FOR ANXIETY 06/02/2024 Active Cephalexin 500 MG Oral CapsuleIndication s:Paronychia of finger, right Take 1 Capsule by mouth in the morning and 1 Capsule at noon and 1 Capsule before bedtime. 21 Capsule 06/09/2024 Active Fluconazole 150 MG Oral Tablet (Diflucan)Indicat ions:Paronychia of finger, right Take 1 Tablet by mouth once for 1 dose. 1 Tablet 06/09/2024 06/09/2024 Active Cephalexin 500 MG Oral CapsuleIndication s:Paronychia of finger, right Take 1 Capsule by mouth in the morning and 1 Capsule at noon and 1 Capsule before bedtime. Do all this for 7 days. 21 Capsule 06/09/2024 06/09/2024 Discontinued (Refill) Fluconazole 150 MG Oral Tablet (Diflucan)Indicat ions:Paronychia of finger, right Take 1 Tablet by mouth once for 1 dose. 1 Tablet 06/09/2024 06/09/2024 Discontinued (Refill) documented as of this encounter (statuses as of 06/09/2024) Active Problems Problem Noted Date Diagnosed Date Cystocele, midline 06/09/2024 Obsessive-compulsive disorder 02/10/2020 documented as of this encounter (statuses as of 06/09/2024) Resolved Problems Problem Noted Date Diagnosed Date Resolved Date Elevated glucose level 09/08/201901/17 Overview: 09/08/2019 - failed 1 hr. Ordered 3 hr. - Fe Aleman CNM 09/17/2019 - 3 hr normal. - Fe Aelman CNM Rubella non-immune status, antepartum 05/07/2019 01/18/2020 Overview: Need Rubella Supervision of other normal 05/05/2019 01/18/2020 Overview: Problem Action Taken Date entered Entered by Date resolved Nutrition provided due date letter for pt to attend WIC 05/05/2019 Daiana Loo RN 05/05/2019 Problem Action Taken Date entered Entered by Date resolved Housing concerns Will have Fe Coto reach out to pt for maybe some resources 05/26/2019 Daiana Loo RN 05/26/2019 Problem Action Taken Date entered Entered by Date resolved Current needs or questions Patient denies having any current needs or questions 06/04/2019 Daiana Loo RN 06/04/2019 Problem Action Taken Date entered Entered by Date resolved Readiness Page completed 07/08/2019 Aurora Ashley RN 07/08/19 Problem Action Taken Date entered Entered by Date resolved Current needs or questions Patient denies having any current needs or questions 08/12/2019 Allie Doty RN 08/12/2019 Problem Action Taken Date entered Entered by Date resolved 3rd trimester 3rd trimester questions/education completed 09/21/2019 Aurora Ashley RN 09/21/19 Bottle Feeding Pt plans on bottle feeding 09/21/2019 Aurora Ashley RN 09/21/19 Problem Action Taken Date entered Entered by Date resolved Current needs or questions Patient denies having any current needs or questions 10/08/2019 Daiana Loo RN 10/08/2019 Problem Action Taken Date entered Entered by Date resolved Current needs or questions Readiness page reviewed Patient denies having any current needs or questions 10/23/2019 Allie Doty RN 10/23/2019 Problem Action Taken Date entered Entered by Date resolved control Discussed with pt and this is a good time to start thinking about control after delivery-pt unsure at this time 11/04/2019 Aurora Ashley RN 11/04/19 Problem Action Taken Date entered Entered by Date resolved Current needs or questions Patient denies having any current needs or questions 12/01/2019 Allie Doty RN 12/01/2019 Problem Action Taken Date entered Entered by Date resolved Current needs or questions Patient denies having any current needs or questions 12/08/2019 Daiana Loo RN 12/08/2019 History of molar 12/17/2017 0 01/18/2020 History of hemorrhage 10/31/2017 01/18/2020 Overview: Not transfused. History of depres yue, currently 10/31/2017 01/18/2020 Obesity in , antepartum 10/31/2017 05/05/2019 Overview: Class 1 Early Glucola Spotting affecting in second trimester 11/21/2015 06/01/2016 Encounter for supervision of normal first in first trimester 09/13/2015 06/01/2016 Overview: 03/09/2016 Tdap Vaccine administered per clinic protocol. Pt given VIS(vaccine information sheet) Tailor B Gooden, RN Pt scheduled for IOL on 05/22/2016 Other general counseling and advice for contraceptive management 11/09/2014 10/25/2015 documented as of this encounter (statuses as of 06/09/2024) Immunizations Name Administration Dates Next Due HPV Vaccine, 9-Valent 11/11/2018 PPD 02/08/2014,01/25/2014 Seasonal Influenza, PF, 6 M & above, IM , (FluLaval or Fluzone) 07/28/2018 Seasonal Influenza, Quadrivalent, No Preserve, I M 10/08/2019 TDAP (age 10 and older)(Boostrix) 10/08/2019, documented as of this encounter Social History Tobacco Use Types Packs/Day Years Used Date Smoking Tobacco: Never Smokeless Tobacco: Never Alcohol Use Standard Drinks/Week Comments No 0 (1 standard drink = 0.6 oz pur e alcohol) PHQ-2 Answer Date Recorded PHQ-2 Score 9 11/11/2018 [place] Depression Scale Answer Date Recorded [place] Depression Scale Score 5 04/13/2020 The thought of harming myself has occurred to me . (Pt Reported) 04/13/2020 Utilities Answer Date Recorded Do you have trouble paying y our heating, water, or electric bill? (Adult - for ages 18 years and over) Not on file 03/31/2024 Is your family able to pay t he heat, water, or electric bill? (Household - for ages 0-17 years) Not on file 03/31/2024 Does your family have access to good internet? (Household - for ages 0-17 years) Not on file 03/31/2024 Social Connections Answer Date Recorded How often do you feel lonely or isolated from those around you? (Adult - for ages 18 years and over) Not on file 03/31/2024 Sex and Gender Information Value Date Recorded Sex Assigned at Not on file Gender Identity Not on file Sexual Orientation Not on file Job Start Date Occupation Industry Not on file Not on file Not on file documented as of this encounter Miscellaneous Notes * Telephone Encounter - Adalid Garcia [facility] - 06/09/2024 5:09 PM EDTSigned Prescriptions: Disp Refills Cephalexin 500 MG Oral Capsule 21 Cap*0 Sig: Take 1 Capsule by mouth in the morning and 1 Capsule at noon and 1 Capsule before bedtime.Authorizing Provider: HOSEA NAVA User: ADALID GARCIA Fluconazole 150 MG Oral Tablet (Diflucan) 1 Tabl*0 Sig: Take 1 Tablet by mouth once for 1 dose.Authorizing Provider: HOSEA NAVAUser: ADALID GARCIA * Telephone Encounter - Adalid Garcia RP - 06/09/2024 5:08 PM EDT Patient is switching pharmacies. Reissued balance of refills on current prescription(s) to [facility] [place] Thank you, Adalid Garica [facility] Clinical Pharmacist [facility] 06/09/24 5:08 PM [phone] * Telephone Encounter - Rex Hobson media sales representative - 06/09/2024 4:30 PM EDT Please reroute Rx to [id number] Pending Prescriptions: Disp Refills Cephalexin 500 MG Oral Capsule 21 Cap*0 Sig: Take 1 Capsule by mouth in the morning and 1 Capsule at noon and 1 Capsule before bedtime. Fluconazole 150 MG Oral Tablet (Diflucan) 1 Tabl*0 Sig: Take 1 Tablet by mouth once for 1 dose. Last Visit: 06/09/2024 (in office), 04/14/2021 (telemedicine) Visit date not found If no future appointments scheduled, and last appointment is greater than a year ago, please schedule patient for a follow-up appointment Last date the medication was ordered: 06/09/2024 06/09/2024 Patient Phone Numbers Labs: Lab Results Component Value Date/Time CREAT 0.7 09/05/2021 10:11 AM CREAT 0.7 12/19/2019 02:11 PM POTASSIUM 4.3 09/05/2021 10:11 AM POTASSIUM 4.3 12/19/2019 02:11 PM TSH 2.13 09/05/2021 10:11 AM TSH 2.41 09/01/2018 12:13 PM ALT 20 09/05/2021 10:11 AM ALT 23 12/19/2019 02:11 PM documented in this encounter Plan of Treatment Health Maintenance Due Date Last Done Comments Depression Screening 11/11/2019 11/11/2018, 04/11/2018 HPV/Co-Test 2023 COVID-19 Vaccine (3 2022-2 4 season) 2024 11/28/2020, 10/18/2020 Postponed from 06/14/2023 (Unavailable) Influenza Vaccine (FLU shot) (#1) 2024 10/08/2019, 07/28/2018, 08/14/2015 Cervical Cancer Screening 12/12/2024 Pap Smear 12/12/2024 12/12/2021, 10/31/2017, 11/09/2014 HPV (Gardasil) Vaccine (3 - 3-dose series) 06/09/2025 11/11/2018, 01/25/2014 (Refused) Postponed from 02/03/2019 (Patient Declined After Education) DTap/Tdap Vaccines (3 - Td o r Tdap) 10/08/2029 10/08/2019, 03/09/2016 Hepatitis B Vaccine Completed 03/27/1994, 1993, 1993 MENINGOCOCCAL (MENACTRA/MENVEO) Aged Out No longer eligible b ased on patient's age to complete this topic Pneumococcal Vaccine: Pediatrics (0 to 5 Years) and At-Risk Patients (6 to 64 Years) Aged Out No longer eligible b ased on patient's age to complete this topic documented as of this encounter Medical Devices Not on filedocumented as of this encounter Visit Diagnoses Diagnosis Paronychia of finger, right documented in this encounter Care Teams Crime Scene Evidence Technician Relationship Specialty Start Date End Date Gissel Ambrose DO [address] [place] [address] PCP - General Family Medicine 10/08/19 documented as of this encounter
--- OUTSIDE RECORDS SUMMARY | 2024-07-25 10:07 | External Medical Summary | Summary of Care ---
Author Name Unknown Organization [facility] Address [address] [place] [address] Phone [phone] Care Team Providers Care Tourist Escort Name Role Phone Gissel Ambrose Primary Care Provider Reason for Visit * Reason Comments Acute Patient is here for BV and STI swab. Encounter Details Date Type Department Care Team ([facility] st Contact Info) Description 03/06/2024 11:20 AM EDT Office Visit [address] [address] Porsche Marcelino PA-C [address] [place] [address] Screen for STD (sexually transmitted disease)*; Acute vaginitis Allergies Active Allergy Reactions Criticality Noted Date Comments Penicillins Nausea/vomiting 11/06/2013 documented as of this encounter (statuses as of 03/06/2024) Medications Medication Sig Dispensed Refills Start Date End Date Status metroNIDAZOLE 0.75 % Vaginal Gel (Metrogel-Vaginal) Administer 1 Applicator into the vagina at bedtime for 5 days. For 5 days. 70 g 03/06/2024 03/11/2024 Active documented as of this encounter (statuses as of 03/06/2024) Active Problems Problem Noted Date Diagnosed Date Obsessive-compulsive disorder 02/10/2020 documented as of this encounter (statuses as of 03/06/2024) Resolved Problems Problem Noted Date Diagnosed Date Resolved Date Elevated glucose level 09/08/201901/17 Overview: 09/08/2019 - failed 1 hr. Ordered 3 hr. - Fe Aleman CNM 09/17/2019 - 3 hr normal. - Fe Aleman CNM Rubella non-immune status, antepartum 05/07/2019 01/18/2020 [...] delivery-pt unsure at this time 11/04/2019 Aurora Ashley, VIJAY 11/04/19 Problem Action Taken Date entered Entered by Date resolved Current needs or questions Patient denies having any current needs or questions 12/01/2019 Allie Doty RN 12/01/2019 Problem Action Taken Date entered Entered by Date resolved Current needs or questions Patient denies having any current needs or questions 12/08/2019 Daiana Loo, VIJAY 12/08/2019 History of molar 12/17/2017 0 01/18/2020 [...] clinic protocol. Pt given VIS(vaccine information sheet) Arun Gooden, RN Pt scheduled for IOL on 05/22/2016 Other general counseling and advice for contraceptive management 11/09/2014 10/25/2015 documented as of this encounter (statuses as of 03/06/2024) Immunizations Name Administration Dates Next Due HPV [...] Answer Date Recorded PHQ-2 Score 9 11/11/2018 [place] Depression Scale Answer Date Recorded [place] Depression Scale Score 5 04/13/2020 The thought of harming myself has occurred to me . (Pt Reported) 04/13/2020 Sex and Gender Information Value Date Recorded Sex Assigned at Not on file Gender Identity Not on file Sexual Orientation Not on file Job Start Date Occupation Industry Not on file Not on file Not on file documented as of this encounter Last Filed Vital Signs Vital Sign Reading Time Taken Comments Blood Pressure 102/82 03/06/2024 11:22 AM EDT Pulse 78 03/06/2024 11:22 AM EDT Temperature 37.1 C (98.7 F) 03/06/2024 1 1:22 AM EDT Respiratory Rate 18 03/06/2024 11:2 2 AM EDT Oxygen Saturation 97% 03/06/2024 11: 22 AM EDT Inhaled Oxygen Concentration - - Weight 67.5 kg (148 lb 12.8 oz) 024 11:22 AM EDT Height - - Body Mass Index 26.36 10/24/2023 10:18 AM EST documented in this encounter Progress Notes * Porsche Marcelino PA-C - 03/06/2024 11:34 AM EDT Images from the original note were not included. History of Present Illness Sofia Marcelino is a 28 year old female that presents for Acute (Patient is here for BV and STI swab. ) Complains of vaginal discharge. Discharge described as thin and white. Associated sxs incl vaginal odor and lower pelvic pressure. History of BV and sxs feel similar. She is also requesting STD testing. Current partner is bisexual. Physical Exam Vitals: 03/06/24 1122 Temp: 37.1 C (98.7 F) Pulse: 78 Resp: 18 SpO2: 97% BP: 102/82 BP Readings from Last 3 Encounters: 03/06/24 102/82 10/24/23 106/72 03/08/23 121/79 Wt Readings from Last 3 Encounters: 03/06/24 67.5 kg (148 lb 12.8 oz) 10/24/23 70.2 kg (154 lb 12.8 oz) 03/08/23 88.5 kg (195 lb 3.2 oz) BMI Readings from Last 3 Encounters: 03/06/24 26.36 kg/m 10/24/23 27.42 kg/m 03/08/23 34.58 kg/m Physical Exam Vitals and nursing note reviewed. Constitutional: General: She is not in acute distress. Appearance: Normal appearance. Genitourinary: Labia: Right: No rash, tenderness or lesion. Left: No rash, tenderness or lesion. Vagina: No vaginal discharge. Neurological: Mental Status: She is alert. I have reviewed the following results: None Assessment and Plan 1. Screen for STD (sexually transmitted disease) - HIV ANTIGEN & ANTIBODY SCREEN W/ CONFIRMATION; Future - HEPATITIS C ANTIBODY SCREEN WITH PROGRESSION TO HEPATITIS C RNA QUANTITATIVE; Future - RPR; Future - CHLAMYDIA TRACHOMATIS AND NEISSERIA GONORRHOEAE, AMPLIFIED PROBE - VAGINOSIS PANEL, PCR 2. Acute vaginitis - VAGINOSIS PANEL, PCR - BETA-HCG, QUANTITATIVE; Future Wrap-Up Follow-up: Return if symptoms worsen or fail to improve. | Check-out note: Send to the lab. Time: I spent a total of 20-29 minutes (exact time 20 mins) on the date of service in preparation, delivery, and documentation of the care provided to Sofia Marcelino excluding any time spent in the performance of separately billed services. The above was discussed and understanding was expressed. Porsche Marcelino PA-C [address] [phone] documented in this encounter Nursing Notes * Shweta Mata LPN - 03/06/2024 11:23 AM EDT The patient has been properly identified by confirmation of name and date of . Chief Complaint Patient presents with Acute Patient is here for BV and STI swab. documented in this encounter Plan of Treatment Pending Results Name Type Priority Associated Diagnoses Date /Time HIV ANTIGEN & ANTIBODY SCREEN W/ CONFIRMATION Lab Routine Screen for STD (sexually transmitted disease) 03/06/2024 11:55 AM EDT HEPATITIS C ANTIBODY SCREEN WITH PROGRESSION TO HEPATITIS C RNA QUANTITATIVE Lab Routine Screen for STD (sexually transmitted disease) 03/06/2024 11:55 AM EDT RPR Lab Routine Screen for STD (sexually transmitted disease) 03/06/2024 11:55 AM EDT CHLAMYDIA TRACHOMATIS AND NEISSERIA GONORRHOEAE, AMPLIFIED PROBE Lab Routine Screen for STD (sexually transmitted disease) 03/06/2024 12:03 PM EDT VAGINOSIS PANEL, PCR Lab Routine Screen for STD (sexually transmitted disease) Acute vaginitis 03/06/2024 12:02 PM EDT BETA-HCG, QUANTITATIVE Lab Routine Acute vaginitis 03/06/2024 11:55 AM EDT Scheduled Orders Name Type Priority Associated Diagnoses Orde r Schedule HIV ANTIGEN & ANTIBODY SCREEN W/ CONFIRMATION Lab Routine Screen for STD (sexually transmitted disease) Expected: 03/06/2024 (Approximate), Expires: 03/06/2025 HEPATITIS C ANTIBODY SCREEN WITH PROGRESSION TO HEPATITIS C RNA QUANTITATIVE Lab Routine Screen for STD (sexually transmitted disease) Expected: 03/06/2024 (Approximate), Expires: 03/06/2025 RPR Lab Routine Screen for STD (sexually transmitted disease) Expected: 03/06/2024 (Approximate), Expires: 03/06/2025 BETA-HCG, QUANTITATIVE Lab Routine Acute vaginitis Expected: 03/06/2024, Expires: 06/06/2024 Health Maintenance Due Date Last Done Comments GARDASIL-HPV IMMUNIZATION SERIES (3 - 3-dose series) 02/03/2019 11/11/2018, 01/25/2014 (Refused) Depression Screening 11/11/2019 11/11/2018, 04/11/2018 COVID-19 Vaccine (3 - 2022-2 4 season) 2023 11/28/2020, 10/18/2020 HPV/Co-Test 2023 Influenza Vaccine (FLU shot) (Season Ended) 2024 10/08/2019, 07/28/2018, 08/14/2015 Cervical Cancer Screening 12/12/2024 Pap Smear 12/12/2024 12/12/2021, 10/31/2017, 11/09/2014 DTaP,Tdap,and Td Vaccines (3 - Td or Tdap) 10/08/2029 10/08/2019, 03/09/2016 Hepatitis B Completed 03/27/1994, 1993, 1993 MENINGOCOCCAL (MENACTRA/MENVEO) Aged [...] as of this encounter Visit Diagnoses Diagnosis Screen for STD (sexually transmitted disease)- Primary Screening examination for venereal disease Acute vaginitis Vaginitis and vulvovaginitis, unspecified documented in this encounter Care Teams Tourist Escort Relationship Specialty Start Date End Date Gissel Ambrose DO [address] [place] [address] PCP - General Family Medicine 10/08/19 documented as of this encounter"
--- OUTSIDE RECORDS SUMMARY | 2024-07-25 10:07 | External Medical Summary ---
Author Name Unknown Address Unknown Organization [id number]:[facility] [place] [address] [facility] [address] Laboratory Report Ordering Provider Test Date Status NUNO LANCASTER 03/06/2024 11:55:38 Final hCG can serve as a screening assay for . However, early may not give a positive hCG test result. In addition, some non- women may have a hCG result slightly higher than the reference limit. Careful interpretation of the hCG with clinical history is required to determine whether the patient may be . Observation Date Value Abnormality Reference (Units ) Status Choriogonadotropin.intact +Beta subunit [Units/volume] in Serum or Plasma 03/06/2024 11:55:38 <0.6 <=1.0 (mIU/mL) Final Performing Location LABORATORY [facility] - [facility] [address] [facility] [address]
--- OUTSIDE RECORDS SUMMARY | 2024-07-25 10:07 | External Medical Summary | Summary of Care ---
Author Name Unknown Organization [facility] Address [address] [place] [address] Phone [phone] Care Team Providers Care Plater Barrel Name Role Phone Gissel Ambrose Primary Care Provider Reason for Visit * Reason Comments Acute Patient is here for BV and STI swab. Encounter Details Date Type Department Care Team ([facility] st Contact Info) Description 03/06/2024 11:20 AM EDT Office Visit [address] [phone] Porsche Marcelino PA-C [address] [place] [address] Screen for STD (sexually transmitted disease)*; Acute [...] Answer Date Recorded PHQ-2 Score 9 11/11/2018 [place] Depression Scale Answer Date Recorded [place] Depression Scale Score 5 04/13/2020 The thought [...] and understanding was expressed. Porsche Marcelino PA-C [address] [phone] documented in this encounter Nursing Notes * [...] (sexually transmitted disease) 03/06/2024 11:55 AM EDT VAGINOSIS PANEL, PCR Lab Routine Screen [...] transmitted disease) Expected: 03/06/2024 (Approximate), Expires: 03/06/2025 CHLAMYDIA TRACHOMATIS AND NEISSERIA GONORRHOEAE, AMPLIFIED PROBE Lab Routine Screen for STD (sexually transmitted disease) Ordered: 03/06/2024 BETA-HCG, QUANTITATIVE Lab Routine Acute vaginitis Expected: [...] unspecified documented in this encounter Care Teams Plater Barrel Relationship Specialty Start Date End Date Gissel Ambrose DO [address] [place] [address] PCP - General Family Medicine 10/08/19 documented as of this encounter"
--- OUTSIDE RECORDS SUMMARY | 2024-07-25 10:07 | External Medical Summary | Summary of Care ---
Author Name Unknown Organization [facility] Address [address] [facility] [place] [address] Phone [phone] Care Team Providers Care Slate Roofer Name Role Phone Halie Gissel Antonette HOWARD Primary Care Provider Encounter Details Date Type Department Care Team (Late st Contact Info) Description 02/08/2024 Orders Only PATIENT PORTAL DO NOT DELETE THIS DEPT USED BY [place] RUIZ [id number] Allergies Active Allergy Reactions Criticality Noted Date Comments Penicillins Nausea/vomiting 11/06/2013 documented as of this encounter (statuses as of 02/08/2024) Medications No known medicationsdocumented as of this encounter (statuses as of 02/08/2024) Active Problems Problem Noted Date Diagnosed Date Obsessive-compulsive disorder 02/10/2020 documented as of this encounter (statuses as of 02/08/2024) Resolved Problems Problem Noted Date Diagnosed Date [...] 10/31/2017 01/18/2020 Overview: Not transfused. History of della turner, currently 10/31/2017 01/18/2020 Obesity in , antepartum [...] as of this encounter (statuses as of 02/08/2024) Immunizations Name Administration Dates Next Due HPV [...] Answer Date Recorded PHQ-2 Score 9 11/11/2018 [place] Depression Scale Answer Date Recorded [place] Depression Scale Score 5 04/13/2020 The thought of harming myself has occurred to me . (Pt Reported) 04/13/2020 Sex and Gender Information Value Date Recorded Sex Assigned at Not on file Gender Identity Not on file Sexual Orientation Not on file Job Start Date Occupation Industry Not on file Not on file Not on file documented as of this encounter Plan of Treatment Health Maintenance Due Date Last Done Comments GARDASIL-HPV IMMUNIZATION SERIES (3 - 3-dose series) 02/03/2019 11/11/2018, 01/25/2014 (Refused) Depression Screening 11/11/2019 11/11/2018, 04/11/2018 COVID-19 Vaccine (2022-2 4 season) 2023 11/28/2020, 10/18/2020 HPV/Co-Test 2023 [...] Not on filedocumented as of this encounter Care Teams Slate Roofer Relationship Specialty Start Date End Date Gissel Ambrose DO [address] [place] [address] PCP - General Family Medicine 10/08/19 documented as of this encounter
--- OUTSIDE RECORDS SUMMARY | 2024-07-25 10:07 | External Medical Summary ---
Author Name Unknown Address Unknown Organization K01:[facility] - [address] [place] [address] Laboratory Report Ordering Provider Test Date Status NUNO LANCASTER 03/06/2024 11:55:38 Final Observation Date Value Abnormality Reference (Units ) Status Hep C Ab 03/06/2024 11:55:38 Negative Negative Final Further HCV quantitative paige ting not performed per protocol. Performing Location [facility] - [address] [place] [address]
--- OUTSIDE RECORDS SUMMARY | 2024-07-25 10:07 | External Medical Summary | Summary of Care ---
Author Name Unknown Organization [facility] [address] [facility] [address] Phone [phone] Care Team Providers Care Division Officer Weapons Department Name Role Phone Gissel Ambrose Primary Care Provider Reason for Visit * Reason Comments Acute Patient is here toda y due to swollen, painful and draining on one of her right fingers. Patient states she started with symptoms on May 29. Patient states she has been keeping it clean and keeping otc ointment on it along with covering it with bandages. Encounter Details Date Type Department Care Team (Late st Contact Info) Description 06/09/2024 1:40 PM EDT Office Visit [facility] [address] [place] [address] February, Paul Marquez MD [address] [place] [address] Paronychia of finger, right*; Vaginal yeast infection; Cystocele, midline Allergies Active Allergy Reactions Criticality Noted Date [...] ANXIETY 06/02/2024 Active Cephalexin 500 MG Oral CapsuleIndicatio ns:Paronychia of finger, right Take 1 Capsule by mouth in the morning and 1 Capsule at noon and 1 Capsule before bedtime. Do all this for 7 days. 21 Capsule 06/09/2024 06/16/2024 Active Fluconazole 150 MG Oral Tablet (Diflucan)Indica tions:Paronychia of finger, right Take 1 Tablet by mouth once for 1 dose. 1 Tablet 06/09/2024 06/09/2024 Active metroNIDAZOLE 0.75 % Vaginal Gel (Metrogel-Vagina l) Administer 1 Applicator into the vagina at bedtime for 5 days. For 5 days. 70 g 03/06/2024 06/09/2024 Discontinue d(Medicatio n List Clean Up) Fluconazole 150 MG Oral Tablet (Diflucan) Take 1 Tablet by mouth once for 1 dose. 1 Tablet 03/10/2024 06/09/2024 Discontinue d(Medicatio n List Clean Up) metroNIDAZOLE 0.75 % Vaginal Gel (Metrogel-Vagina l) Administer 1 Applicator into the vagina at bedtime for 5 days. For 5 days. 70 g 05/19/2024 06/09/2024 Discontinue d(Medicatio n List Clean Up) documented as of this encounter (statuses as [...] Answer Date Recorded PHQ-2 Score 9 11/11/2018 [place] Depression Scale Answer Date Recorded [place] Depression Scale Score 5 04/13/2020 The thought [...] Sign Reading Time Taken Comments Blood Pressure 112/88 06/09/2024 1:51 PM EDT Pulse 86 06/09/2024 1:51 PM EDT Temperature 36.6 C (97.8 F) 06/09/2024 1:51 PM ED T Respiratory Rate 16 06/09/2024 1:51 PM EDT Oxygen Saturation 98% 06/09/2024 1:51 PM EDT Inhaled Oxygen Concentration - - Weight 61 kg (134 lb 6.4 oz) 06/09/2024 1:51 PM EDT Height 160 cm (5' 3") 06/09/2024 1:51 PM EDT Body Mass Index 23.81 06/09/2024 1:51 PM EDT documented in this encounter Progress Notes * Paul Aguillon MD - 06/09/2024 1:48 PM EDT Images from the original note were not included. Assessment and Plan 1. Paronychia of finger, right Paronychia of the right 4th finger. Unable to drain any purulent material in office today. Start Keflex 500 mg 3 times daily for 7 days. Continue warm soaks. If purulent collection appears recommend repeat evaluation in office for drainage. - Cephalexin 500 MG Oral Capsule; Take 1 Capsule by mouth in the morning and 1 Capsule at noon and 1 Capsule before bedtime. Do all this for 7 days. Dispense: 21 Capsule; Refill: 0 - Fluconazole 150 MG Oral Tablet (Diflucan); Take 1 Tablet by mouth once for 1 dose. Dispense: 1 Tablet; Refill: 0 2. Vaginal yeast infection Diflucan. 3. Cystocele, midline Cystocele noted by OBGYN in 2021. Conservative management recommended at that time. Wrap-Up Follow up as needed. History of Present Illness The patient is a 28 year old female who presents for acute. Paronychia of the right ring finger for which patient was already drained it a couple of times at home with sterile needles. Significant pain and erythema especially at the lateral aspect. No fevers,chills, other signs of systemic infection. Physical Exam Vitals: 06/09/24 1351 Temp: 36.6 C (97.8 F) Pulse: 86 Resp: 16 SpO2: 98% BP: 112/88 BMI: 23.81 Physical Exam Physical Exam Vitals reviewed. Constitutional: General: She is not in acute distress. Skin: Comments: Erythema and exquisite tenderness at the lateral aspect of the right distal 4th finger. No visible purulence present. No drainage. Neurological: Mental Status: She is alert. This note has been completed in part utilizing [employer] Speech Voice Recognition Software. Due to technical limitations of the software, grammatical errors, random word insertions, prounoun errors, and incomplete sentences may occur. Any formal questions or concerns about the content, text, or information contained within the body of this dictation should be directly addressed to the provider forclarification. documented in this encounter Nursing Notes * Vanessa Collazo LPN - 06/09/2024 1:53 PM EDT The patient has been properly identified by confirmation of name and date of . Chief Complaint Patient presents with Acute Patient is here today due to swollen, painful and draining on one of her right fingers. Patient states she started with symptoms on May 29. Patient states she has been keeping it clean and keeping otc ointment on it along with covering it with bandages. documented in this encounter Plan of Treatment Health Maintenance Due Date Last Done Comments Depression Screening 11/11/2019 11/11/2018, 04/11/2018 HPV/Co-Test 2023 COVID-19 Vaccine (2022-2 4 season) 2024 11/28/2020, 10/18/2020 Postponed from [...] encounter Visit Diagnoses Diagnosis Paronychia of finger, right- Primary Vaginal yeast infection Candidiasis of vulva and vagina Cystocele, midline documented in this encounter Care Teams Division Officer Weapons Department Relationship Specialty Start Date End Date Gissel Ambrose DO [address] [place] [address] PCP - General Family Medicine 10/08/19 documented as of this encounter
--- OUTSIDE RECORDS SUMMARY | 2024-07-25 10:07 | External Medical Summary ---
Author Name Unknown Address Unknown Organization [id number]:LAB[facility]ATORY [facility] - [address] [facility] [address] Laboratory Report Ordering Provider Test Date Status NUNO LANCASTER 03/06/2024 12:02:48 Final Observation Date Value Abnormality Reference (Units ) Status Bacterial vaginosis [Interpretation] in Vaginal fluid Qualitative 03/06/2024 12:02:48 Positive Abnormal Negative Final Positive for Bacterial Vagin osis. Correlate results with other clinical findings. Livier sp DNA [Presence] in Vaginal fluid by Probe 03/06/2024 12:02:48 Positive Abnormal Negative Final Livier species group RNA de tected. Correlate results with other clinical findings. Livier glabrata RNA [Presen ce] in Vaginal fluid by MIGUEL with probe detection 03/06/2024 12:02:48 Negative Negative Final No Livier glabrata RNA dete cted. Correlate results with other clinical findings. Trichomonas vaginalis DNA [P resence] in Vaginal fluid by Probe 03/06/2024 12:02:48 Negative Negative Final No Trichomonas vaginalis RNA detected. Performing Location LABORATORY [facility] - [address] [facility] [address]
--- OUTSIDE RECORDS SUMMARY | 2024-07-25 10:07 | External Medical Summary | Summary of Care ---
Author Name Unknown Organization [facility] Address [address] [place] [address] Phone [phone] Care Team Providers Care Piling Setter Name Role Phone Gissel Ambrose Primary Care Provider Reason for Visit * Reason Comments Acute Patient is here for BV and STI swab. Encounter Details Date Type Department Care Team ([facility] st Contact Info) Description 03/06/2024 11:20 AM EDT Office Visit [address] [address] Porsche Marcelino PA-C [address] [place] [phone] Screen for STD (sexually transmitted disease)*; Acute [...] Answer Date Recorded PHQ-2 Score 9 11/11/2018 [place] Depression Scale Answer Date Recorded [place] Depression Scale Score 5 04/13/2020 The thought [...] and understanding was expressed. Porsche Marcelino PA-C [address] [address] documented in this encounter Nursing Notes * [...] unspecified documented in this encounter Care Teams Piling Setter Relationship Specialty Start Date End Date Gissel Ambrose DO [address] [place] [address] PCP - General Family Medicine 10/08/19 documented as of this encounter"
--- OUTSIDE RECORDS SUMMARY | 2024-07-25 10:07 | External Medical Summary ---
Author Name Unknown Address Unknown Organization K01:LABORATORY [facility] - [address] [place] [address] [facility] [address] Laboratory Report Ordering Provider Test Date Status NUNO LANCASTER 03/06/2024 11:55:38 Final Observation Date Value Abnormality Reference (Units ) Status HIV 1+2 Ab+HIV1 p24 Ag [Presence] in Serum or Plasma by Immunoassay 03/06/2024 11:55:38 Negative Negative Final Negative HIV-1/2 antigen and antibody screening tset results usually indicate the absence of HIV-1 and HIV-2 infection. However, such negative results do not rule-out acute HIV infection. If acute HIV-1 infection is highly suspected, it is recommended that a specimen be submitted for detection of HIV-1 RNA. Performing Location LABORATORY [facility] - [address] [facility] [address]
--- OUTSIDE RECORDS SUMMARY | 2024-07-25 10:07 | External Medical Summary | Summary of Care ---
Author Name Unknown Organization [facility] Address [address] [place] [address] Phone [phone] Care Team Providers Care Project Management Professor Name Role Phone AlyceGissel chan Primary Care Provider Reason for Visit * Reason Comments Outpatient Testing Encounter Details Date Type Department Care Team (Late st Contact Info) Description 03/06/2024 11:50 AM EDT Laboratory Laboratory Patient Service [address] [id number] [address] Screen for STD (sexually transmitted disease); Acute vaginitis Allergies Active Allergy Reactions Criticality [...] failed 1 hr. Ordered 3 hr. - eF Aleman CNM 09/17/2019 - 3 hr normal. [...] any current needs or questions 12/01/2019 Allie Doty, RN 12/01/2019 Problem Action Taken Date entered [...] Answer Date Recorded PHQ-2 Score 9 11/11/2018 [place] Depression Scale Answer Date Recorded [place] Depression Scale Score 5 04/13/2020 The thought of harming myself has occurred to me . (Pt Reported) 04/13/2020 Sex and Gender Information Value Date Recorded Sex Assigned at Not on file Gender Identity Not on file Sexual Orientation Not on file Job Start Date Occupation Industry Not on file Not on file Not on file documented as of this encounter Plan of Treatment Pending Results [...] (sexually transmitted disease) 03/06/2024 11:55 AM EDT BETA-HCG, QUANTITATIVE Lab Routine Acute vaginitis 03/06/2024 11:55 AM EDT HEPATITIS C ANTIBODY Lab Routine Screen for STD (sexually transmitted disease) 03/06/2024 11:55 AM EDT HEPATITIS C RNA ADD ON Lab Routine Screen for STD (sexually transmitted disease) 03/06/2024 11:55 AM EDT Health Maintenance Due Date Last Done Comments [...] Diagnoses Diagnosis Screen for STD (sexually transmitted disease) Screening examination for venereal disease Acute vaginitis Vaginitis and vulvovaginitis, unspecified documented in this encounter Care Teams Project Management Professor Relationship Specialty Start Date End Date Gissel Ambrose DO [address] [place] [address] PCP - General Family Medicine 10/08/19 documented as of this encounter
--- NOTE | 2024-07-25 10:15 | Ultrasound Report ---
US extremity non-vascular ltd HISTORY: 28 years-old Female L axillary abscess acute pain and swelling of left axillary tissues COMPARISON: Chest CT 11/22/2019 TECHNIQUE: Multiple real-time sonographic images of the left axillary tissues were obtained assessing grayscale appearance and color flow FINDINGS: Cutaneous thickening with subcutaneous edema and increased echogenicity. There is a superficial subcu taneous ovoid wider than tall hypoechoic complex 2.2 x 1.2 x 2.1 cm collection with peripheral hypere almas. IMPRESSION: Findings suggestive of cellulitis with probable small abscess versus phlegmon measuring 2 .2 cm. ACT 112: Negative or not required by law. The above report was generated using voice recognition software. It may contain grammatical, syntax o r spelling errors. Electronically signed by: Nabil Mayfield M.D. 07/25/2024 10:13 AM
[2024-07-25] MEDS: LIDOCAINE/EPINEPH/TETRACAINE 1 EA SYR EXT STA (11:18)
[2024-07-25] MEDS ORDERED: VANCOMYCIN CONSULT ACTIVE PRN ×2 (12:23→15:16)
[2024-07-25] MEDS: KETOROLAC TROMETHAMINE 15 MG/ML VIAL IV ONE (12:27)
[2024-07-25] MEDS: AMPICILLIN/SULBACTAM SOD 3,000 MG/100 ML BAG IV STA (12:56)
[2024-07-25] MEDS: VANCOMYCIN HCL 1,250 MG in SODIUM CHLORIDE 0.9% 500 ML IV ONE (13:25)
--- NOTE | 2024-07-25 13:28 | History & Physical Report ---
Date of Service July 25, 2024 Assessment & Plan (1) Abscess of left axilla: (2) Cellulitis of left axilla: Plan Sofia Marcelino is a 28y/o F with PMHx significant for midline cystocele, obsessive-compulsive disorder, substance abuse disorder and depression who presented to the ED for evaluation of an infection in her left axillary region. Cellulitis & Abscess of Left Axillary Region: Vitals stable in the ED, no signs of sepsis. WBC 14k on presentation. Procalcitonin negative. Ultrasound of this area was suggestive of cellulitis with probable small abscess versus phlegmon measuring 2.2 cm. She had the abscess incised and drained at bedside in the ED. Wound culture and blood culture are both pending. Was started on IV vancomycin + Unasyn in the ED. Will transition her to IV vancomycin + cefepime for now. MRSA swab pending. Will start probiotic. NSS x 1 bag. Pain control as needed. General surgery consulted. Patient may need further I&D. Encourage warm compress application. Hypokalemia: K+ 3.4 on presentation. 40mEq oral KCl ordered. Will continue to monitor and replete her K+ as needed. Substance Abuse Disorder: Reports that she was previously using "street drugs" however she has been clean for approximately 5 months. She is on Suboxone but has not been taking this medication recently. Will continue to hold her Suboxone for now. Advise judicious narcotic use. DVT Prophylaxis: SCDs/TEDs for now pending potential need for further I&D. Code Status: FULL CODE PCP: Gissel Ambrose DO Disposition: Admit to Med/Surg Patient seen in collaboration with Dr. Golden. Please see addendum. I spent a total of 50 minutes coordinating, documenting, and providing care for this patient excluding time spent in the performance of separately billed services. This included personally reviewing all current laboratories and imaging studies, medical reconciliation, outpatient chart review and discussion with specialists. This chart was completed in part utilizing Speech Voice Recognition Software. Grammatical errors, random word insertions, pronoun errors, and incomplete sentences are an occasional consequence of this system due to software limitations, ambient noise, and hardware issues. Any formal questions or concerns about the content, text, or information contained within the body of this dictation should be directly addressed to the provider for clarification. History of Present Illness Chief Complaint: Left Axillary Region Infection Primary Care Provider: Gissel Ambrose DO Sofia Marcelino is a 28y/o F with PMHx significant for midline cystocele, obsessive-compulsive disorder, substance abuse disorder and depression who presented to the ED for evaluation of an infection in her left axillary region. History obtained from patient and associated chart review. Patient reports that she started to notice a red bump in her left axillary region approximately 3 days ago. Mentions that this area has progressively gotten larger and rather painful. She notes a significant amount of surrounding erythema as well. Denies any drainage from the area or trauma. Does not recall nicking herself in this region when shaving her armpits recently. She does have a history of drug abuse. Reports that she was previously using "street drugs" however she has been clean for approximately 5 months. She is on Suboxone but has not been taking this medication recently. Denies any fevers, chills or body aches. Has never had an abscess in the past. Denies any previous history of autoimmune conditions such as hidradenitis suppurativa. Patient does have some bruising across her chest wall. She attributes this to "playing around" with her boyfriend a while ago. Reports she bruises very easily however denies any hematologic history. No cigarette or alcohol use. Vitals stable in the ED, no signs of sepsis. Ultrasound of this area was suggestive of cellulitis with probable small abscess versus phlegmon measuring 2.2 cm. She had the abscess incised and drained at bedside in the ED. A culture was taken from this area in addition to a blood culture. Allergies Allergy/AdvReac Type Severity Reaction Status Date / Time Penicillins AdvReac Intermediate NAUSEA/VOMI Verified 11/07/22 15:40 TIN Home Medications Medication Instructions Recorded Confirmed Type buprenorphine 8 mg-naloxone 2 mg 2.5 film sublingual DAILY 07/25/24 07/25/24 History sublingual film Past Med/Surg History Problem List Abscess of left axilla Cellulitis of left axilla Depression (Chronic) Medical History Obesity Surgical History Hx of dilation and curettage Family History Other Deep vein thrombosis Social History Smoking Status: Never smoker Second Hand Exposure: No; Do You Dip or Chew Tobacco: No; Hx Alcohol Use: Yes Alcohol type: hard liquor Hx Substance Use: No Preferred Language: Mauritian Communication Ability: Effective Visual Impairment: No Limitations Waterworks Supervisor Required: No Beliefs That Will Affect Care: None marital status: Single Current Living Situation: Alone Current Living Situation Comment: Pt lives with and is caregiver of her two young children. current occupational status: employed Other Information That Helps Us Care for You: No Feels Safe at Home: Yes Safety Concerns: Feels Safe At This Time Assistive Devices: None Review of Systems Review of Systems: At least ten systems reviewed and negative, except as noted in the HPI. Physical Exam Physical Exam: General: WD/WN, vitals as above, NAD, sitting up in bed, very pleasant, conversing appropriately. A+Ox3, euthymic affect. HEENT: Normocephalic, atraumatic. PERRL, conjunctivae normal, anicteric sclerae. External ear and nose normal, oropharynx normal. Respiratory: Normal respiratory effort, lungs clear to auscultation, no wheeze, rales, rhonchi. No accessory muscle use. Cardiovascular: Regular rate, rhythm, no murmur, normal peripheral pulses, no BLE edema. Vessels: No JVD. Chest: Notable ecchymosis covering the anterior chest wall. Abdomen/GI: Normal bowel sounds, soft, nontender, no hepatosplenomegaly. Extremities/Musculoskeletal: No cyanosis or clubbing, extremities motor strength intact, moves all extremities. Neurologic: EOMI, no focal deficits, CN's II-XI not formally tested but appear grossly intact bilaterally. Skin: No rashes, normal color, warm/dry. Area of erythema and induration noted in the L axillary region s/p I&D, extremely tender to touch. Results & Data Results & Data Vital Signs (Past 12 Hours) Vital Signs Temp Pulse Pulse Resp BP BP Pulse Ox 07/25/24 13:23 90 18 125/79 99 07/25/24 11:16 88 16 129/97 100 07/25/24 08:53 36.8 C 122 H 19 116/78 100 O2 Del Method 07/25/24 13:23 Room Air 07/25/24 11:16 Room Air 07/25/24 08:53 Room Air Laboratory Results Short CBC 07/25/24 Range/Units 09:12 WBC 14.32 H (4.8-10.8) K/ul Hgb 16.2 H (12.0-16.0) g/dl Hct 47.8 H (37.0-47.0) % Plt Count 310 (130-400) K/uL BMP 07/25/24 09:12 Sodium 139 Potassium 3.4 L Chloride 103 Carbon Dioxide 30 BUN 11 Creatinine 0.70 Glucose 65 L Calcium 9.5 Liver Function 07/25/24 Range/Units 09:12 Total Bilirubin 1.5 H (0.2-1.0) mg/dl AST 23 (13-39) U/L ALT 18 (7-52) U/L Alkaline Phosphatase 75 (34-104) U/L Albumin 4.5 (3.4-5.0) gm/dl Diagnostic Findings Vascular Ultrasound 07/25/24 09:04 US extremity non-vascular ltd HISTORY: 28 years-old Female L axillary abscess acute pain and swelling of left axillary tissues COMPARISON: Chest CT 11/22/2019 TECHNIQUE: Multiple real-time sonographic images of the left axillary tissues were obtained assessing grayscale appearance and color flow FINDINGS: Cutaneous thickening with subcutaneous edema and increased echogenicity. There is a superficial subcutaneous ovoid wider than tall hypoechoic complex 2.2 x 1.2 x 2.1 cm collection with peripheral hyperemia. IMPRESSION: Findings suggestive of cellulitis with probable small abscess versus phlegmon measuring 2.2 cm. ACT 112: Negative or not required by law. The above report was generated using voice recognition software. It may contain grammatical, syntax or spelling errors. Electronically signed by: Nabil Mayfield M.D. 07/25/2024 10:13 AM Medications Administered Vancomycin HCl 1,250 mg/ (Sodium Chloride) 525 mls @ 200 mls/hr IV NOW ONE Stop: 07/25/24 15:00 Last Admin: 07/25/24 13:25 Dose: 200 mls/hr Documented By: ARIES Discontinued Medications Ampicillin Sodium/Sulbactam Sodium (Unasyn) 3,000 mg in 100 mls @ 200 mls/hr IV NOW STA Stop: 07/25/24 12:52 Last Admin: 07/25/24 12:56 Dose: 200 mls/hr Documented By: ARIES Ketorolac Tromethamine (Ketorolac Tromethamine 15 Mg/Ml Vial) 10 mg IV NOW ONE Stop: 07/25/24 12:18 Last Admin: 07/25/24 12:27 Dose: 10 mg Documented By: ARIES Lidocaine (Lidocaine/Epineph/Tetracaine 1 Ea Syr) 1 each EXT NOW STA Stop: 07/25/24 10:34 Last Admin: 07/25/24 11:18 Dose: 1 each Documented By: ARIES Code Status & VTE Plan Code Status FULL CODE Supervising Physician Co-Signing Physician Notes Attending Addendum: Case reviewed with the advanced practitioner. I have personally performed a history and physical examination on the patient. I have reviewed the advanced practitioner's documentation on the date of service referenced in note, and I agree with, and take responsibility for the plan of care. please refer to her notes for full details patient seen and examined, records reviewed by myself as well on exam, patient seen with RN Ambar at bedside throughout whole encounter, assisted with PE as well still has significant and tenderness on the left axillary region no chest pain, dyspnea, palpitations, dizziness, chills, nausea no other symptoms VS noted and reviewed oriented x 3, not in distress, speaks in sentences with no effort nor accessory muscle use normal rate, regular rhythm, no murmurs clear breath sounds bilaterally non distended, soft, nontender Left axilla- area of fluctuance with mild erythema, sanguinous drainage, moderate tenderness no extension of erythema beyond axilla no bipedal edema, erythema, warmth no neuro deficits all labs, imaging noted and reviewed ASSESSMENT AND PLAN> LEFT AXILLARY CELLULITIS WITH ABSCESS US of the area: Findings suggestive of cellulitis with probable small abscess versus phlegmon measuring 2.2 cm. ff up wound, blood cultures Vanco + Cefepime IV Gen Surg consult for I&D Evaluation other diagnoses and plan of care as per advanced practitioner's notes Thomas Golden MD
[2024-07-25] MEDS ORDERED: POLYETHYLENE (MIRALAX) 17 GM PACK PO PRN (15:16)
[2024-07-25] MEDS ORDERED: ONDANSETRON INJ 2 MG/ML 2 ML VIAL IV PRN (15:16)
[2024-07-25] MEDS ORDERED: KETOROLAC TROMETHAMINE 15 MG/ML VIAL IV PRN (15:16)
[2024-07-25] MEDS: POTASSIUM CHLORIDE CRTAB 20 MEQ TABCR PO STA (16:38)
[2024-07-25] MEDS: ADVANCED PROBIOTIC 625 MG CAPSULE PO SCH (16:38)
--- NOTE | 2024-07-25 17:39 | Surgery Consultation ---
Date of Consultation July 25, 2024 Assessment & Plan (1) Abscess of left axilla: (2) Cellulitis of left axilla: Plan 28-year-old woman with left axillary abscess, now status post incision and drainage in the emergency department. I would recommend continued conservative management at this point. IV antibiotics. Advance diet as tolerated. We will continue to monitor. History of Present Illness Reason for Consultation: Left axillary abscess Requesting Physician: Thomas Golden MD Attending Physician: Thomas Golden MD History of Present Illness 28-year-old woman presents with pain and swelling of the left axilla. This occurred starting 2 days ago. She denies fevers or chills. She denies nausea or vomiting. In the emergency department, ultrasound demonstrated cellulitis with phlegmon possible 2 cm abscess. An I&D was performed in the ER with return of purulent fluid. Dressings were applied. She states she is feeling much better since the drainage procedure. Allergies Allergy/AdvReac Type Severity Reaction Status Date / Time Penicillins AdvReac Intermediate NAUSEA/VOMI Verified 11/07/22 15:40 TIN Home Medications Medication Instructions Recorded Confirmed Type buprenorphine 8 mg-naloxone 2 mg 2.5 film sublingual DAILY 07/25/24 07/25/24 History sublingual film Patient History Medical History Obesity Surgical History Hx of dilation and curettage Family History Other Deep vein thrombosis Social History Smoking Status: Never smoker Second Hand Exposure: No; Do You Dip or Chew Tobacco: No; Hx Alcohol Use: Yes Alcohol type: hard liquor Hx Substance Use: No Preferred Language: Turkish Communication Ability: Effective Visual Impairment: No Limitations Stationary Steam Engineer Required: No Beliefs That Will Affect Care: None marital status: Single Current Living Situation: Alone Current Living Situation Comment: Pt lives with and is caregiver of her two young children. current occupational status: employed Other Information That Helps Us Care for You: No Feels Safe at Home: Yes Safety Concerns: Feels Safe At This Time Assistive Devices: None Review of Systems Review of Systems: All systems reviewed & are unremarkable except as noted in HPI & below Physical Exam Constitutional: WD/WN, vitals as above Eyes: PERRL, conjunctivae normal, anicteric sclerae Neck: trachea midline, no thyromegaly Respiratory: normal respiratory effort; no respiratory distress and no labored breathing Cardiovascular: Rate/Rhythm: regular rate and regular rhythm Gastrointestinal (Abdomen): Inspection/Auscultation: abdomen normal to inspection; abdomen not distended Skin: no rashes, warm and dry Left axilla with 3 cm area of induration and erythema surrounding an incision and drainage site draining purulent fluid. Tenderness to palpation Psychiatric: A+Ox3, euthymic affect Results & Data Vital Signs (Past 12 Hours) Vital Signs Temp Pulse Pulse Pulse Resp BP BP 07/25/24 15:21 36.7 C 86 16 122/82 07/25/24 13:23 90 18 07/25/24 11:16 88 16 07/25/24 08:53 36.8 C 122 H 19 116/78 BP Pulse Ox O2 Del Method 07/25/24 15:21 99 Room Air 07/25/24 13:23 125/79 99 Room Air 07/25/24 11:16 129/97 100 Room Air 07/25/24 08:53 100 Room Air Laboratory Results 07/25/24 07/25/24 07/25/24 Range/Units Unknown 10:53 09:12 WBC 14.32 H (4.8-10.8) K/ul RBC 5.34 (4.20-5.40) M/uL Hgb 16.2 H (12.0-16.0) g/dl Hct 47.8 H (37.0-47.0) % MCV 89.5 (80.0-100.0) fL MCH 30.3 (25.0-34.0) pg MCHC 33.9 (32.0-36.0) g/dL RDW Std Deviation 39.7 (36.4-46.3) fL RDW Coeff of Sofia 12.3 (11.5-14.5) % Plt Count 310 (130-400) K/uL MPV 10.7 (9.4-12.4) fL Immature Gran % (Auto) 0.3 % Neut % (Auto) 73.5 % Lymph % (Auto) 17.9 % [place] % (Auto) 6.8 % Eos % (Auto) 1.1 % Baso % (Auto) 0.4 % Neut # (Auto) 10.51 H (1.40-6.50) K/uL Lymph # (Auto) 2.57 (1.20-3.40) K/uL [place] # (Auto) 0.97 H (0.11-0.59) K/uL Eos # (Auto) 0.16 (0.00-0.50) K/uL Baso # (Auto) 0.06 (0.00-0.20) K/uL Immature Gran # (Auto) 0.05 (0.01-0.20) K/uL Sodium 139 (136-145) mmol/L Potassium 3.4 L (3.5-5.1) mmol/L Chloride 103 (98-107) mmol/L Carbon Dioxide 30 (21-32) mmol/L Anion Gap 6 (3-11) BUN 11 (6-23) mg/dl Creatinine 0.70 (0.6-1.2) mg/dl Est Cr Clr Drug Dosing 97.2 ml/min eGFR 119.24 BUN/Creatinine Ratio 15.7 (10-20) Glucose 65 L (70-99(Fasting)) mg/dl Calcium 9.5 (8.6-10.3) mg/dl Total Bilirubin 1.5 H (0.2-1.0) mg/dl AST 23 (13-39) U/L ALT 18 (7-52) U/L Alkaline Phosphatase 75 (34-104) U/L Total Protein 7.6 (6.0-8.3) gm/dl Albumin 4.5 (3.4-5.0) gm/dl Globulin 3.1 (2.5-4.0) gm/dl Albumin/Globulin Ratio 1.5 (0.9-2) Procalcitonin < 0.02 (0-0.5) ng/ml HCG, Qual Negative (Negative) Nasal Screen MRSA (PCR) Negative (Negative) Diagnostic Findings US extremity non-vascular ltd HISTORY: 28 years-old Female L axillary abscess acute pain and swelling of left axillary tissues COMPARISON: Chest CT 11/22/2019 TECHNIQUE: Multiple real-time sonographic images of the left axillary tissues were obtained assessing grayscale appearance and color flow FINDINGS: Cutaneous thickening with subcutaneous edema and increased echogenicity. There is a superficial subcutaneous ovoid wider than tall hypoechoic complex 2.2 x 1.2 x 2.1 cm collection with peripheral hyperemia. IMPRESSION: Findings suggestive of cellulitis with probable small abscess versus phlegmon measuring 2.2 cm.
[2024-07-25] MEDS: SODIUM CHLORIDE 0.9% 1,000 ML IV SCH (17:51)
[2024-07-25] MEDS: CEFEPIME 2000MG 2,000 MG/20 ML SYR IV SCH (18:06)
[2024-07-25] MEDS: VANCOMYCIN HCL 750 MG in SODIUM CHLORIDE 0.9% 250 ML IV SCH (20:00)
[2024-07-26] MEDS: ACETAMINOPHEN 325 MG TAB PO PRN (00:04)
[2024-07-26] MEDS ORDERED: VANCOMYCIN HCL 1,000 MG in SODIUM CHLORIDE 0.9% 500 ML IV SCH (01:30)
[2024-07-26 07:24] VITALS: BP 113/76; PULSE 85; RESP 18; TEMP 97.7; O2SAT 100
[2024-07-26 07:39] LABS: Hematocrit (blood only) 37.5 % (37.0-47.0); Hemoglobin 12.8 g/dl (12.0-16.0); Mean Corpuscular Hemoglobin 30.8 pg (25.0-34.0); Mean Corpuscular Hgb Conc 34.1 g/dL (32.0-36.0); Mean Corpuscular Volume 90.4 fL (80.0-100.0); Mean Platelet Volume 10.9 fL (9.4-12.4); Platelet Count 214 K/uL (130-400); RDW Coefficient of Variation 12.3 % (11.5-14.5); RDW Standard Deviation 40.6 fL (36.4-46.3); Red Blood Count 4.15 M/uL (4.20-5.40); White Blood Count 8.39 K/ul (4.8-10.8)
[2024-07-26 07:40] LABS: BUN Creatinine Ratio 18.6 (10-20); Calcium 8.3 mg/dl (8.6-10.3); Creatinine Clr Calc Pharmacy 115.3 ml/min; Magnesium 1.9 mg/dl (1.7-2.4); Phosphorus 3.3 mg/dl (2.5-4.9); Potassium 4.3 mmol/L (3.5-5.1)
--- NOTE | 2024-07-26 10:32 | Discharge Summary ---
Discharge Summary Date of Service July 26, 2024 Principal Dx & Hospital Course #1 = Principal Diagnosis (1) Abscess of left axilla: (2) Cellulitis of left axilla: Plan Ms Sofia Marcelino is a 28y/o F with PMHx significant for midline cystocele, obsessive-compulsive disorder, substance abuse disorder and depression who presented to the ED for evaluation of an infection in her left axillary region. Patient is now s/p ID of left axillary abscess. Patient with good drainage s/p surgerical intervention and cleared for d/c.Patient d/c with 10 days Bactrim and follow up with be coordinated with surgery. Cellulitis & Abscess of Left Axillary Region: s/p vanc/unasyn Transitioned to po bactrim for 10 days #Hypokalemia: K+ 3.4 on presentation. 40mEq oral KCl ordered. Will continue to monitor and replete her K+ as needed.resolved #Substance Abuse Disorder: Reports that she was previously using "street drugs" however she has been clean for approximately 5 months. She is on Suboxone but has not been taking this medication recently. resume per direction of addiction clinic Notes For Next Care Provider Medication Changes From Visit bactrim bid x 10 days Admission HPI Per Admitting Provider Sofia Marcelino is a 28y/o F with PMHx significant for midline cystocele, obsessive-compulsive disorder, substance abuse disorder and depression who presented to the ED for evaluation of an infection in her left axillary region. History obtained from patient and associated chart review. Patient reports that she started to notice a red bump in her left axillary region approximately 3 days ago. Mentions that this area has progressively gotten larger and rather painful. She notes a significant amount of surrounding erythema as well. Denies any drainage from the area or trauma. Does not recall nicking herself in this region when shaving her armpits recently. She does have a history of drug abuse. Reports that she was previously using "street drugs" however she has been clean for approximately 5 months. She is on Suboxone but has not been taking this medication recently. Denies any fevers, chills or body aches. Has never had an abscess in the past. Denies any previous history of autoimmune conditions such as hidradenitis suppurativa. Patient does have some bruising across her chest wall. She attributes this to "playing around" with her boyfriend a while ago. Reports she bruises very easily however denies any hematologic history. No cigarette or alcohol use. Vitals stable in the ED, no signs of sepsis. Ultrasound of this area was suggestive of cellulitis with probable small abscess versus phlegmon measuring 2.2 cm. She had the abscess incised and drained at bedside in the ED. A culture was taken from this area in addition to a blood culture. Admission Exam Per Admitting Provider General: WD/WN, vitals as above, NAD, sitting up in bed, very pleasant, conversing appropriately. A+Ox3, euthymic affect. HEENT: Normocephalic, atraumatic. PERRL, conjunctivae normal, anicteric sclerae. External ear and nose normal, oropharynx normal. Respiratory: Normal respiratory effort, lungs clear to auscultation, no wheeze, rales, rhonchi. No accessory muscle use. Cardiovascular: Regular rate, rhythm, no murmur, normal peripheral pulses, no BLE edema. Vessels: No JVD. Chest: Notable ecchymosis covering the anterior chest wall. Abdomen/GI: Normal bowel sounds, soft, nontender, no hepatosplenomegaly. Extremities/Musculoskeletal: No cyanosis or clubbing, extremities motor strength intact, moves all extremities. Neurologic: EOMI, no focal deficits, CN's II-XI not formally tested but appear grossly intact bilaterally. Skin: No rashes, normal color, warm/dry. Area of erythema and induration noted in the L axillary region s/p I&D, extremely tender to touch. Discharge Exam Constitutional WD/WN, vitals as above Respiratory normal respiratory effort, lungs clear to auscultation Cardiovascular RRR, no murmur, no edema Skin area exposed at bedside still draining, much improved from day prior Updated Medication List Medication Instructions Recorded Confirmed Type buprenorphine 8 mg-naloxone 2 mg 2.5 film sublingual DAILY 07/25/24 07/25/24 History sublingual film L.acidop,casei,lactis,rham-B.lact,faviola 1 cap PO DAILY 30 days #30 caps 07/26/24 Rx 625 mg (10 billion cell) capsule (Advanced Probiotic) fluconazole 150 mg tablet 150 mg PO DAILY 1 dose #1 tab 07/26/24 Rx sulfamethoxazole 800 1 tab PO BID 10 days #20 tabs 07/26/24 Rx mg-trimethoprim 160 mg tablet (Bactrim DS) Hospital Stay Data Consultations 07/25/24 13:02 ED Decision to Admit Stat 07/25/24 13:53 Consult General Surgery Routine Diagnostic Imagining Performed 07/25/24 09:04 extremity non-vascular ltd Stat Pending Results Patient Have Any Pending Studies at Discharge: No Discharge Instructions Given to Patient (Per Discharging Provider) You were admitted for IV abx for left axilla abscess. You will continue oral antibiotics: Bactrim 1 tablet two times a day for ten days Please consider a daily probiotic, especially while on antibiotics. A dose for fluconazole sent to take in case of vaginal yeast infection Please follow up with General Surgery in 2 weeks, Total Time Total Time Spent Total Time Spent (In Minutes): 35
--- NOTE | 2024-07-26 11:24 | Surgery Progress Note ---
Date of Service July 26, 2024 Assessment & Plan (1) Abscess of left axilla: (2) Cellulitis of left axilla: Plan 28-year-old woman with left axillary abscess, now status post incision and drainage in the emergency department. I would recommend continued conservative management at this point. IV antibiotics. Advance diet as tolerated. We will continue to monitor. 07-26-2024 - significant improvement. Will plan to switch to oral antibiotics and discharged with close follow-up in clinic. Admission and Anticipated Discharge Date Admission Date: July 25, 2024 Subjective feeling significant improvement. Minimal pain. No fevers or chills. No nausea or vomiting. Physical Exam Physical Exam: NAD, A&O x 3 NCAT Left axilla: No erythema, significant decrease in induration Purulent drainage from I&D site Results & Data Vital Signs (Past 12 Hours) Vital Signs Temp Pulse Resp BP Pulse Ox O2 Del Method 07/26/24 07:23 36.5 C 85 18 113/76 100 Room Air Laboratory Results 07/26/24 07/25/24 07/25/24 Range/Units 06:30 Unknown 10:53 WBC 8.39 (4.8-10.8) K/ul RBC 4.15 L (4.20-5.40) M/uL Hgb 12.8 D (12.0-16.0) g/dl Hct 37.5 (37.0-47.0) % MCV 90.4 (80.0-100.0) fL MCH 30.8 (25.0-34.0) pg MCHC 34.1 (32.0-36.0) g/dL RDW Std Deviation 40.6 (36.4-46.3) fL RDW Coeff of Sofia 12.3 (11.5-14.5) % Plt Count 214 (130-400) K/uL MPV 10.9 (9.4-12.4) fL Sodium 140 (136-145) mmol/L Potassium 4.3 D (3.5-5.1) mmol/L Chloride 109 H (98-107) mmol/L Carbon Dioxide 27 (21-32) mmol/L Anion Gap 4 (3-11) BUN 11 (6-23) mg/dl Creatinine 0.59 L (0.6-1.2) mg/dl Est Cr Clr Drug Dosing 115.3 ml/min eGFR 124.26 BUN/Creatinine Ratio 18.6 (10-20) Glucose 84 (70-99(Fasting)) mg/dl Calcium 8.3 L (8.6-10.3) mg/dl Phosphorus 3.3 (2.5-4.9) mg/dl Magnesium 1.9 (1.7-2.4) mg/dl Procalcitonin < 0.02 (0-0.5) ng/ml Nasal Screen MRSA (PCR) Negative (Negative)
[2024-07-26] MEDS: VANCOMYCIN LEVEL ONE (11:43)
== END 2024-07-26 12:10 | disposition home or self-care (01) | DRG 603 ==
LOC: ED 08:48 → SUATTDRO 13:53 → 3W 13:53